=== PATIENT | female | born 2005 | race Caucasian/White ===

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

== ENCOUNTER 2023-04-07 14:44 | Emergency (ER) | payer OTHER ==
[2023-04-07 15:08] VITALS: RESP 18
--- NOTE | 2023-04-07 17:27 | ED ---
Psych HPI - General Chief Complaint: Psychiatric Symptoms Stated Complaint: mental health Time Seen by Provider: 04/07/23 15:02 Source: patient Mode of arrival: ambulatory - History of Present Illness Initial Comments: Patient is a 17-year-old female who presents to emergency department for suicidal ideation. Patient reports intermittent suicidal ideation after getting buried by some of her classmates. Patient has history of depression. Patient did come close to cutting herself yesterday but did not follow through with it. She denies plan and intention. Denies homicidal ideation. Denies visual and auditory hallucinations. Denies alcohol and drug use. Patient presents with her mother. She has no other concerns at this time. Denies fever, chills, headache, shortness of breath, cough, chest pain , abdominal pain, nausea, vomiting, diarrhea, and burning with urination. - Related Data Home Medications Medication Instructions Recorded Confirmed Etonogestrel [Nexplanon] 1 implant SQ CONTINUOUS 08/18/22 10/20/22 Lisdexamfetamine Dimesylate 50 mg PO QAM 08/18/22 10/20/22 [Vyvanse] Montelukast [Singulair] 10 mg PO DAILY 08/18/22 10/20/22 Venlafaxine HCl [Effexor XR] 225 mg PO QAM 08/18/22 10/20/22 Liraglutide [Saxenda] 2.8 mg SQ DAILY 10/20/22 10/20/22 Ondansetron [Zofran] 4 mg PO Q8HR PRN 10/20/22 10/20/22 Allergies Allergy/AdvReac Type Severity Reaction Status Date / Time Latex, Natural Rubber Allergy red & Verified 04/07/23 15:08 itchy skin Penicillins Allergy Rash/Hives Verified 04/07/23 15:08 Review of Systems ROS Statement: Those systems with pertinent positive or pertinent negative responses have been documented in the HPI. ROS Other: All systems not noted in ROS Statement are negative. Past Medical History Past Medical History: Thyroid Disorder Additional Past Medical History / Comment(s): polycystic ovaries, migraines. SEASONAL ALLERGIES, carpel tunnel History of Any Multi-Drug Resistant Organisms: None Reported Past Surgical History: No Surgical Hx Reported Additional Past Anesthesia/Blood Transfusion Reaction / Comment(s): NEVER HAD ANESTHESIA. Past Psychological History: ADD/ADHD, Anxiety, Depression Smoking Status: Never smoker - Past Family History Mother Family Medical History: No Reported History General Exam Limitations: no limitations General appearance: alert Head exam: Present: atraumatic, normocephalic, normal inspection Eye exam: Present: normal appearance, PERRL, EOMI. Absent: scleral icterus, conjunctival injection, periorbital swelling Respiratory exam: Present: normal lung sounds bilaterally. Absent: respiratory distress, wheezes, rales, rhonchi, stridor Cardiovascular Exam: Present: regular rate, normal rhythm, normal heart sounds. Absent: systolic murmur, diastolic murmur, rubs, gallop, clicks Extremities exam: Present: other (No abrasion or laceration) Neurological exam: Present: alert Psychiatric exam: Present: normal affect, suicidal ideation Skin exam: Present: warm, dry, intact, normal color. Absent: rash Course Vital Signs 04/07/23 04/07/23 15:01 17:29 Temperature 98.1 F 98.3 F Pulse Rate 85 79 Respiratory 18 18 Rate Blood Pressure 132/79 127/62 O2 Sat by Pulse 99 99 Oximetry Medical Decision Making - Medical Decision Making Was pt. sent in by a medical professional or institution (, PA, SYS DIR, urgent care, hospital, or fpc...) When possible be specific @ -No Did you speak to anyone other than the patient for history (EMS, parent, family, police, friend...)? What history was obtained from this source @ -No Did you review nursing and triage notes (agree or disagree)? Why? @ -I reviewed and agree with nursing and triage notes Were old charts reviewed (outside hosp., previous admission, EMS record, old EKG, old radiological studies, urgent care reports/EKG's, fpc records)? Report findings @ -No old charts were reviewed Differential Diagnosis (chest pain, altered mental status, abdominal pain women, abdominal pain men, vaginal bleeding, weakness, fever, dyspnea, syncope, headache, dizziness, GI bleed, back pain, seizure, CVA, palpatations, mental health)? @ -Differential Mental Health Depression, anxiety, bipolar, psychosis, schizophrenia, borderline personality, situational depression, adjustment disorder, behavioral disorder, brain tumor, malingering, substance abuse, encephalopathy, medication reaction, dementia, hypothyroidism, degenerative neurologic disorder, lupus.... This is not meant to be all-inclusive list EKG interpreted by me (3pts min.). @ -As above X-rays interpreted by me (1pt min.). @ -None done CT interpreted by me (1pt min.). @ -None done U/S interpreted by me (1pt. min.). @ -None done What testing was considered but not performed or refused? (CT, X-rays, U/S, labs)? Why? @ -None What meds were considered but not given or refused? Why? @ -None Did you discuss the management of the patient with other professionals (professionals i.e. , PA, SYS DIR, lab, RT, psych nurse, director of social work, crib attendant, teacher, energy control officer, rehabilitation caseworker)? Give summary @ -No Was smoking cessation discussed for >3mins.? @ -No Was critical care preformed (if so, how long)? @ -No Were there social determinants of health that impacted care today? How? (Homelessness, low income, unemployed, alcoholism, drug addiction, transportation, low edu. Level, literacy, decrease access to med. care, half-way, rehab)? @ -No Was there de-escalation of care discussed even if they declined (Discuss DNR or withdrawal of care, Hospice)? DNR status @ -No What co-morbidities impacted this encounter? (DM, HTN, Smoking, COPD, CAD, Cancer, CVA, ARF, Chemo, Hep., AIDS, mental health diagnosis, sleep apnea, morbid obesity)? @ -None Was patient admitted / discharged? Hospital course, mention meds given and rout e, prescriptions, significant lab abnormalities, going to OR and other pertinent info. @ -Patient bearing for suicidal ideation. Further evaluation with laboratory studies and imaging not indicated at this time. Alcohol breathalyzer is 0. Patient was evaluated by EPS and was deemed stable for discharge. Patient is prescribed psychiatric medication from her primary care provider. It was recommended patient follow with a psychiatrist and therapist. Mother is agreeable. Patient was given resources upon discharge Undiagnosed new problem with uncertain prognosis? @ -No Drug Therapy requiring intensive monitoring for toxicity (Heparin, Nitro, Insulin, Cardizem)? @ -No Were any procedures done? @ -No Diagnosis/symptom? @ Suicidal ideation Acute, or Chronic, or Acute on Chronic? @ -Acute Uncomplicated (without systemic symptoms) or Complicated (systemic symptoms)? @ Uncomplicated Side effects of treatment? @ -No Exacerbation, Progression, or Severe Exacerbation? @ -No Poses a threat to life or bodily function? How? (Chest pain, USA, IA, pneumonia, PE, COPD, DKA, ARF, appy, cholecystitis, CVA, Diverticulitis, Homicidal, Suicidal, threat to staff... and all critical care pts) @ -Not currently Dr. Chavez is my attending Disposition Clinical Impression: Suicidal ideation Disposition: HOME SELF-CARE Condition: Good Instructions (If sedation given, give patient instructions): Suicide Prevention (ED) Additional Instructions: Follow up with [facility] in one to 2 days. Return to the emergency department if you experience new, concerning, or worsening symptoms Is patient prescribed a controlled substance at d/c from ED?: No Referrals: Ian Ruiz MD [Primary Care Provider] - 1-2 days
[2023-04-07 17:46] VITALS: BP 127/62; PULSE 79; TEMP 98.3
== END 2023-04-07 17:49 | disposition home or self-care (01) ==
LOC: EC 14:44
DX: R45.851 Suicidal ideations (principal); F41.9 Anxiety disorder, unspecified; F32.A Depression, unspecified; F90.9 Attention-deficit hyperactivity disorder, unspecified type; Z79.899 Other long term (current) drug therapy; Z91.040 Latex allergy status; Z88.0 Allergy status to penicillin
CPT/HCPCS: 82075; 99284

== ENCOUNTER → 2023-08-02 | Outpatient (CLI) | payer OTHER ==
--- NOTE | 2023-08-03 09:00 | CT ---
EXAMINATION TYPE: CT brain wo con DATE OF EXAM: 08/02/2023 COMPARISON: None INDICATION: migraines x 6 months DLP: 1150.5 mGycm, Automated exposure control for dose reduction was used. CONTRAST: None CT of the brain is performed utilizing 3 mm thick sections through the posterior fossa and 3 mm thick sections through the remaining calvarium. Study is performed within 24 hours of arrival to the hosp ital. No abnormal hyperdensity is present to suggest an acute intracranial hemorrhage. No mass lesion is evident. No acute infarcts are evident. Ventricles and sulci are appropriate for the patient age. There are couple of small retention cysts within the frontal sinuses. Paranasal sinuses and mastoid a ir cells within the [id number] are otherwise clear. IMPRESSION: 1. No acute intracranial process. Follow-up MRI can be performed as clinically indicated.
== END | disposition home or self-care (01) ==
LOC: RADCTMAIN 16:18
PROVIDERS: ATTEND Family Medicine
DX: G43.909 Migraine, unspecified, not intractable, without status migrainosus (principal); R56.9 Unspecified convulsions
CPT/HCPCS: 70450

== ENCOUNTER 2023-09-14 21:11 | Emergency (ER) | payer OTHER ==
[2023-09-14 21:31] VITALS: BP 136/83; PULSE 94; RESP 16; TEMP 98.6
[2023-09-14] MEDS ORDERED: KETOROLAC 15 MG/ML 1 ML VIAL IVP STA (21:44)
[2023-09-14] MEDS ORDERED: ONDANSETRON 4 MG/2 ML VIAL IVP STA (21:44)
[2023-09-14] MEDS ORDERED: SODIUM CHLORIDE 0.9% 1,000 ML IV STA (21:44)
--- NOTE | 2023-09-14 22:03 | ED ---
Abdominal Pain HPI - General Chief Complaint: Abdominal Pain Stated Complaint: Abd Pain Time Seen by Provider: 09/14/23 21:33 Source: patient Mode of arrival: ambulatory Limitations: no limitations - History of Present Illness Initial Comments: 18-year-old female presenting with chief complaint of right upper quadrant pain. Patient states that this has been ongoing for the last month. States that today she started experiencing nausea and vomiting. Symptoms are worse after eating. No history of abdominal surgeries. Denies fever, chills, chest pain, difficulty breathing, URI-like symptoms. - Related Data Home Medications Medication Instructions Recorded Confirmed Etonogestrel [Nexplanon] 1 implant SQ CONTINUOUS 08/18/22 10/20/22 Lisdexamfetamine Dimesylate 50 mg PO QAM 08/18/22 10/20/22 [Vyvanse] Montelukast [Singulair] 10 mg PO DAILY 08/18/22 10/20/22 Venlafaxine HCl [Effexor XR] 225 mg PO QAM 08/18/22 10/20/22 Liraglutide [Saxenda] 2.8 mg SQ DAILY 10/20/22 10/20/22 Ondansetron [Zofran] 4 mg PO Q8HR PRN 10/20/22 10/20/22 Allergies Allergy/AdvReac Type Severity Reaction Status Date / Time Latex, Natural Rubber Allergy red & Verified 09/14/23 21:26 itchy skin Penicillins Allergy Rash/Hives Verified 09/14/23 21:26 Review of Systems ROS Statement: Those systems with pertinent positive or pertinent negative responses have been documented in the HPI. ROS Other: All systems not noted in ROS Statement are negative. Past Medical History Past Medical History: Thyroid Disorder Additional Past Medical History / Comment(s): polycystic ovaries, migraines. SEASONAL ALLERGIES, carpel tunnel History of Any Multi-Drug Resistant Organisms: None Reported Past Surgical History: No Surgical Hx Reported Additional Past Surgical History / Comment(s): Left wrist surgery Additional Past Anesthesia/Blood Transfusion Reaction / Comment(s): NEVER HAD ANESTHESIA. Past Psychological History: ADD/ADHD, Anxiety, Depression Smoking Status: Vaper Past Alcohol Use History: Occasional Past Drug Use History: Marijuana - Past Family History Mother Family Medical History: No Reported History General Exam Limitations: no limitations General appearance: alert, in no apparent distress Head exam: Present: atraumatic, normocephalic Eye exam: Present: normal appearance, EOMI Neck exam: Present: normal inspection Respiratory exam: Present: normal lung sounds bilaterally. Absent: respiratory distress, wheezes, rales, rhonchi, stridor Cardiovascular Exam: Present: regular rate, normal rhythm, normal heart sounds. Absent: systolic murmur, diastolic murmur, rubs, gallop, clicks GI/Abdominal exam: Present: soft. Absent: distended, tenderness, guarding, rebound, rigid Neurological exam: Present: alert, oriented X3 Psychiatric exam: Present: normal affect, normal mood Skin exam: Present: warm, dry Course Vital Signs 09/14/23 21:23 Temperature 98.6 F Pulse Rate 94 Respiratory 16 Rate Blood Pressure 136/83 O2 Sat by Pulse 98 Oximetry Medical Decision Making - Medical Decision Making Was pt. sent in by a medical professional or institution (, PA, MANAGER E LEARNING, urgent care, hospital, or fpc...) When possible be specific @ -No Did you speak to anyone other than the patient for history (EMS, parent, family, police, friend...)? What history was obtained from this source @ -No Did you review nursing and triage notes (agree or disagree)? Why? @ -I reviewed triage notes, I disagree as the patient indicates she is having right upper quadrant pain Were old charts reviewed (outside hosp., previous admission, EMS record, old EKG, old radiological studies, urgent care reports/EKG's, fpc records)? Report findings @ -No old charts were reviewed Differential Diagnosis (chest pain, altered mental status, abdominal pain women, abdominal pain men, vaginal bleeding, weakness, fever, dyspnea, syncope, headache, dizziness, GI bleed, back pain, seizure, CVA, palpatations, mental health, musculoskeletal)? @ -MDM Differential Abdominal Pain Women: Appendicitis, Cholecystitis, diverticulosis, ischemic bowel, pancreatitis, hepatitis, UTI, gastroenteritis, AAA, incarcerated hernia, bowel obstruction, constipation, inflammatory bowel, hepatitis, peptic ulcer disease, splenic infarction, perforated viscus, vulvitis, ovarian torsion, PID, kidney stone, placenta abruption... This is not meant to be an all-inclusive list EKG interpreted by me (3pts min.). @ -As above X-rays interpreted by me (1pt min.). @ -None done CT interpreted by me (1pt min.). @ -None done U/S interpreted by me (1pt. min.). @ -None done What testing was considered but not performed or refused? (CT, X-rays, U/S, labs)? Why? @ -CBC, CMP, amylase, lipase, urinalysis, urine hCG, abdominal ultrasound are ordered, patient eloped from the ER before obtaining these tests What meds were considered but not given or refused? Why? @ -None Did you discuss the management of the patient with other professionals (professionals i.e. , PA, MANAGER E LEARNING, lab, RT, psych nurse, social insurance administrator, data analyst report writer, teacher, chief merchandising officer, pillowcase cleaner)? Give summary @ -No Was smoking cessation discussed for >3mins.? @ -No Was critical care preformed (if so, how long)? @ -No Were there social determinants of health that impacted care today? How? (Homelessness, low income, unemployed, alcoholism, drug addiction, transportation, low edu. Level, literacy, decrease access to med. care, custodial, rehab)? @ -No Was there de-escalation of care discussed even if they declined (Discuss DNR or withdrawal of care, Hospice)? DNR status @ -No What co-morbidities impacted this encounter? (DM, HTN, Smoking, COPD, CAD, Cancer, CVA, ARF, Chemo, Hep., AIDS, mental health diagnosis, sleep apnea, morbid obesity)? @ -None Was patient admitted / discharged? Hospital course, mention meds given and route, prescriptions, significant lab abnormalities, going to OR and other pertinent info. @ -18-year-old female present with chief complaint of right upper quadrant pain nausea and vomiting. History and physical exam were conducted. Testing is ordered, when nurse Rios went to start IV the patient was not in the room. Patient eloped from the ER before receiving testing. Undiagnosed new problem with uncertain prognosis? @ -No Drug Therapy requiring intensive monitoring for toxicity (Heparin, Nitro, Insulin, Cardizem)? @ -No Were any procedures done? @ -No Diagnosis/symptom? @ -Abdominal pain Acute, or Chronic, or Acute on Chronic? @ -Acute Uncomplicated (without systemic symptoms) or Complicated (systemic symptoms)? @ -Not determined Side effects of treatment? @ -No Exacerbation, Progression, or Severe Exacerbation? @ -No Poses a threat to life or bodily function? How? (Chest pain, [place], [place], pneumonia, PE, COPD, DKA, ARF, appy, cholecystitis, CVA, Diverticulitis, Homicidal, Suicidal, threat to staff... and all critical care pts) @ -Unknown, patient eloped prior to complete evaluation Disposition Clinical Impression: Abdominal pain Narrative: eloped Disposition: LEFT AGAINST MEDICAL ADVICE Condition: Undetermined Referrals: Ian Ruiz MD [Primary Care Provider] - 1-2 days
== END 2023-09-14 22:00 | disposition left against medical advice (07) ==
LOC: EC 21:11
DX: R10.11 Right upper quadrant pain (principal); F41.9 Anxiety disorder, unspecified; F32.A Depression, unspecified; F90.9 Attention-deficit hyperactivity disorder, unspecified type; F17.290 Nicotine dependence, other tobacco product, uncomplicated; F12.90 Cannabis use, unspecified, uncomplicated; Z79.899 Other long term (current) drug therapy; Z88.0 Allergy status to penicillin; Z91.040 Latex allergy status; Z53.29 Procedure and treatment not carried out because of patient's decision for other reasons
CPT/HCPCS: 99283

== ENCOUNTER → 2023-09-14 | Outpatient (CLI) | payer OTHER ==
--- NOTE | 2023-09-14 13:21 | CT ---
EXAMINATION TYPE: CT abdomen pelvis wo/w con CT DLP: 3356 mGycm, Automated exposure control for dose reduction was used. DATE OF EXAM: 09/14/2023 1:17 PM COMPARISON: none CLINICAL INDICATION:Female, 18 years old with history of R10.9 UNSPECIFIED ABDOMINAL PAIN; RUQ pain a nd vomiting x2 months TECHNIQUE: Axial CT abdomen pelvis wo/w con;Sagittal and coronal reformats were created on a [employer] workstation. Contrast used:100 mL of Isovue 300 with IV Contrast, (none if empty) Oral contrast used: with Oral Contrast (none if empty) FINDINGS: LOWER CHEST: Unremarkable ABDOMEN LIVER: Diffusely hypoattenuating parenchyma. GALLBLADDER AND BILE DUCTS: Unremarkable. PANCREAS: Unremarkable. SPLEEN: Unremarkable. ADRENAL GLANDS: Unremarkable. KIDNEYS AND URETERS: No evidence of hydronephrosis or renal calculus. The ureters are unremarkable. PELVIS BLADDER: Unremarkable REPRODUCTIVE: Unremarkable. ABDOMEN & PELVIS STOMACH AND BOWEL: No evidence of bowel obstruction. PERITONEUM/RETROPERITONEUM: No evidence of pneumoperitoneum or free fluid. VASCULATURE: No evidence of aortic aneurysm. MUSCULOSKELETAL: No acute osseous abnormalities LYMPH NODES: No gross evidence for lymphadenopathy. SOFT TISSUE/ABDOMINAL WALL: Unremarkable IMPRESSION: 1. No evidence for acute abdominal process. No obstructive uropathy. The gallbladder is within chilango l limits. No evidence for pancreatitis. 2. Hepatic steatosis.
== END | disposition home or self-care (01) ==
LOC: RADCTMAIN 10:58
PROVIDERS: ATTEND Family Medicine
DX: K76.0 Fatty (change of) liver, not elsewhere classified (principal)
CPT/HCPCS: 74178; Q9967

== ENCOUNTER 2023-09-24 04:18 | Emergency (ER) | payer OTHER ==
[2023-09-24 04:30] VITALS: TEMP 98.6
[2023-09-24 05:28] LABS: Basophils # (A) 0.1 k/uL (0-0.2); Basophils % (A) 1 %; Eosinophils # (A) 0.3 k/uL (0-0.7); Eosinophils % (A) 5 %; HCT 39.4 % (34.0-46.0); HGB 13.4 gm/dL (11.4-16.0); Lymphocytes # (A) 1.1 k/uL (1.0-4.8); Lymphocytes % (A) 19 %; MCH 30.9 pg (25.0-35.0); MCHC 34.1 g/dL (31.0-37.0); MCV 90.8 fL (80.0-100.0); Monocytes # (A) 0.6 k/uL (0-1.0); Monocytes % (A) 10 %; Neutrophils # (A) 3.5 k/uL (1.3-7.7); Neutrophils % (A) 62 %; Platelet Count 263 k/uL (150-450); RBC 4.34 m/uL (3.80-5.40); RDW 12.6 % (11.5-15.5); WBC 5.6 k/uL (4.0-11.0)
--- NOTE | 2023-09-24 05:29 | ED ---
General Adult HPI - General Source: patient Mode of arrival: ambulatory Limitations: no limitations <Logan Albrecht - Last Filed: 09/24/23 06:59> <Hernandez Chavez - Last Filed: 09/24/23 08:52> - General Chief complaint: Abdominal Pain Stated complaint: abd pain Time Seen by Provider: 09/24/23 05:00 - History of Present Illness Initial comments: Dictation was produced using Myrl dictation software. please excuse any grammatical, word or spelling errors. Chief Complaint: 18-year-old female presents with bloody emesis History of Present Illness: Patient is a 18-year-old obese female presents to the emergency department with blood in her vomit. She presents with family member. Patient has been worked up by her primary care doctor for this for the last month. She states tested for H. pylori. She apparently was supposed to have an upper endoscopy however she missed her appointment. Patient states that intermittently since for the last months she would have bouts of emesis. She states that sometimes her emesis is streaked with blood. She does have some mild epigastric pain that is exacerbated with food. Denies any black or bloody stools. Patient has known fatty liver disease seen on CT. She does complain of some mild right upper quadrant pain The ROS documented in this emergency department record has been reviewed and confirmed by me. Those systems with pertinent positive or negative responses have been documented in the HPI. All other systems are other negative and/or noncontributory. (Logan Albrecht) - Related Data Home Medications Medication Instructions Recorded Confirmed Etonogestrel [Nexplanon] 1 implant SQ CONTINUOUS 08/18/22 10/20/22 Lisdexamfetamine Dimesylate 50 mg PO QAM 08/18/22 10/20/22 [Vyvanse] Montelukast [Singulair] 10 mg PO DAILY 08/18/22 10/20/22 Venlafaxine HCl [Effexor XR] 225 mg PO QAM 08/18/22 10/20/22 Liraglutide [Saxenda] 2.8 mg SQ DAILY 10/20/22 10/20/22 Ondansetron [Zofran] 4 mg PO Q8HR PRN 10/20/22 10/20/22 Previous Rx's Medication Instructions Recorded Ondansetron Odt [Zofran Odt] 4 mg PO Q8HR PRN 3 Days #9 tab 09/24/23 Allergies Allergy/AdvReac Type Severity Reaction Status Date / Time Latex, Natural Rubber Allergy red & Verified 09/24/23 04:27 itchy skin Penicillins Allergy Rash/Hives Verified 09/24/23 04:27 Review of Systems ROS Other: All systems not noted in ROS Statement are negative. <Logan Albrecht - Last Filed: 09/24/23 06:59> ROS Other: All systems not noted in ROS Statement are negative. <Hernandez Chavez - Last Filed: 09/24/23 08:52> ROS Statement: Those systems with pertinent positive or pertinent negative responses have been documented in the HPI. Past Medical History Past Medical History: Thyroid Disorder Additional Past Medical History / Comment(s): polycystic ovaries, migraines. SEASONAL ALLERGIES, carpel tunnel History of Any Multi-Drug Resistant Organisms: None Reported Past Surgical History: No Surgical Hx Reported Additional Past Surgical History / Comment(s): Left wrist surgery Additional Past Anesthesia/Blood Transfusion Reaction / Comment(s): NEVER HAD ANESTHESIA. Past Psychological History: ADD/ADHD, Anxiety, Depression Smoking Status: Vaper Past Alcohol Use History: Occasional Past Drug Use History: Marijuana - Past Family History Mother Family Medical History: No Reported History <Logan Albrecht - Last Filed: 09/24/23 06:59> General Exam Limitations: no limitations <Logan Albrecht - Last Filed: 09/24/23 06:59> - General Exam Comments Initial Comments: PHYSICAL EXAM: General Impression: Alert and oriented x3, not in acute distress HEENT: Normocephalic atraumatic, extra-ocular movements intact, pupils equal and reactive to light bilaterally, mucous membranes moist. Cardiovascular: Heart regular rate and rhythm Chest: Able to complete full sentences, no retractions, no tachypnea Abdomen: abdomen soft, non-tender, non-distended, no organomegaly Musculoskeletal: Pulses present and equal in all extremities, no peripheral vance a Motor: no focal deficits noted Neurological: CN II-XII grossly intact, no focal motor or sensory deficits noted Skin: Intact with no visualized rashes Psych: Normal affect and mood (Logan Albrecht) Course Vital Signs 09/24/23 09/24/23 04:24 08:01 Temperature 98.6 F Pulse Rate 90 94 Respiratory 18 16 Rate Blood Pressure 118/71 109/88 O2 Sat by Pulse 100 99 Oximetry Medical Decision Making - Lab Data Result diagrams: 09/24/23 05:18 <Logan Albrecht - Last Filed: 09/24/23 06:59> - Lab Data Result diagrams: 09/24/23 05:18 09/24/23 05:18 <Hernandez Chavez - Last Filed: 09/24/23 08:52> - Medical Decision Making Was pt. sent in by a medical professional or institution (, PA, BUGGY MAN, urgent care, hospital, or fci...) When possible be specific @ -No Did you speak to anyone other than the patient for history (EMS, parent, family, police, friend...)? What history was obtained from this source @ -No Did you review nursing and triage notes (agree or disagree)? Why? @ -I reviewed and agree with nursing and triage notes Were old charts reviewed (outside hosp., previous admission, EMS record, old EKG, old radiological studies, urgent care reports/EKG's, fci records)? Report findings @ -Recent CT abdomen pelvis was reviewed showing hepatic steatosis with no other acute processes Differential Diagnosis (chest pain, altered mental status, abdominal pain women, abdominal pain men, vaginal bleeding, musculoskeletal, weakness, fever, dyspnea, syncope, headache, dizziness, GI bleed, back pain, seizure, CVA, palpatations, mental health)? @ -Differential Abdominal Pain Women: Appendicitis, Cholecystitis, diverticulosis, ischemic bowel, pancreatitis, hepatitis, UTI, gastroenteritis, AAA, incarcerated hernia, bowel obstruction, constipation, inflammatory bowel, hepatitis, peptic ulcer disease, splenic infarction, perforated viscus, vulvitis, ovarian torsion, PID, kidney stone, pl acenta abruption, this is not meant to be an all-inclusive list EKG interpreted by me (3pts min.). @ -None done X-rays interpreted by me (1pt min.). @ -None done CT interpreted by me (1pt min.). @ -None done U/S interpreted by me (1pt. min.). @ -None What testing was considered but not performed or refused? (CT, X-rays, U/S, labs)? Why? @ -None What meds were considered but not given or refused? Why? @ -None Did you discuss the management of the patient with other professionals (professionals i.e. , PA, BUGGY MAN, lab, RT, psych nurse, social work case manager, studio artist, teacher, evp and chief operating officer, returned case inspector)? Give summary @ -No Was smoking cessation discussed for >3mins.? @ -No Was critical care preformed (if so, how long)? @ -No Were there social determinants of health that impacted care today? How? (Homelessness, low income, unemployed, alcoholism, drug addiction, transportation, low edu. Level, literacy, decrease access to med. care, fci, rehab)? @ -No Was there de-escalation of care discussed even if they declined (Discuss DNR or withdrawal of care, Hospice)? DNR status @ -No What co-morbidities impacted this encounter? (DM, HTN, Smoking, COPD, CAD, Cancer, CVA, ARF, Chemo, Hep., AIDS, mental health diagnosis, sleep apnea, morbid obesity)? @ -None Was patient admitted / discharged? Hospital course, mention meds given and route, prescriptions, significant lab abnormalities, going to OR and other pertinent info. @ -18-year-old female presents emergency department with acute on chronic abdominal pain nausea vomiting and h blood-streaked hematemesis. Vital signs stable. Patient undergoing workup by primary care physician. S patient well- appearing at bedside. Clinical presentation suggest Vanda-Funez tear from chronic vomiting. Laboratory evaluation shows normal CBC. Normal urinalysis negative for . Patient pending ultrasound. Patient care signed out to Dr. Chavez at 7:00 AM Undiagnosed new problem with uncertain prognosis? @ -No Drug Therapy requiring intensive monitoring for toxicity (Heparin, Nitro, Insulin, Cardizem)? @ -No Were any procedures done? @ -No Diagnosis/symptom? Acute, or Chronic, or Acute on Chronic? Uncomplicated (without systemic symptoms) or Complicated (systemic symptoms)? @ -Vanda-Funez tear Side effects of treatment? @ -No Exacerbation, Progression, or Severe Exacerbation? @ -No Poses a threat to life or bodily function? How? (Chest pain, [place], [place], pneumonia, PE, COPD, DKA, ARF, appy, cholecystitis, CVA, Diverticulitis, Homicidal, Suicidal, threat to staff... and all critical care pts) @ -No (Logan Albrecht) Patient signed out to me pending results of gallbladder ultrasound. Briefly, patient presents for possible blood in her vomit as well as emesis and mild e pigastric abdominal pain. Was supposed to follow-up for an EGD but missed her appointment. Also some mild right upper quadrant pain. Patient was symptomatically treated and laboratory studies so far have returned within acceptable limits. She is on blood thinners. She is asking to eat and drink when I arrived. Ultrasound of the gallbladder as interpreted by me reveals known fatty liver disease but no other findings at this time. No evidence of cholecystitis. I discussed results with the patient. Symptoms have resolved. I recommended she follow-up with GI for obtaining EGD. This is likely an exacerbation of her chronic symptoms. She was in agreement this plan. She has Zofran at home already but I will send additional Zofran and she is already on antiacids. She will be given contact info for Dr. Witt. She was in agreement this plan.Discussed the streaky blood might be related to Vanda-Funez tear with her chronic emesis. I will provide the patient with a prescription for Zofran. I instructed the patient to follow up with their PCP in the next 1-3 days. I provided contact information for follow up with gastroenterology. I explained that the patient should return to the emergency department if they experience any worsening symptoms. Strict return precautions were discussed with the patient. The patient expressed understanding of these instructions. I answered all questions that the patient had. The patient was discharged home in good condition with their presc riptions and follow up information. Diagnosis/symptom? @ -Abdominal pain of unknown etiology Acute, or Chronic, or Acute on Chronic? @ -Acute Uncomplicated (without systemic symptoms) or Complicated (systemic symptoms)? @ -Complicated Side effects of treatment? @ -None Exacerbation, Progression, or Severe Exacerbation] @ -No Poses a threat to life or bodily function? @ -Unlikely (Hernandez Chavez) - Lab Data Lab Results 09/24/23 09/24/23 09/24/23 Range/Units 05:18 05:18 05:35 WBC 5.6 (4.0-11.0) k/uL RBC 4.34 (3.80-5.40) m/uL Hgb 13.4 (11.4-16.0) gm/dL Hct 39.4 (34.0-46.0) % MCV 90.8 (80.0-100.0) fL MCH 30.9 (25.0-35.0) pg MCHC 34.1 (31.0-37.0) g/dL RDW 12.6 (11.5-15.5) % Plt Count 263 (150-450) k/uL MPV 8.0 Neutrophils % 62 % Lymphocytes % 19 % Monocytes % 10 % Eosinophils % 5 % Basophils % 1 % Neutrophils # 3.5 (1.3-7.7) k/uL Lymphocytes # 1.1 (1.0-4.8) k/uL Monocytes # 0.6 (0-1.0) k/uL Eosinophils # 0.3 (0-0.7) k/uL Basophils # 0.1 (0-0.2) k/uL Sodium 138 (137-145) mmol/L Potassium 3.9 (3.5-5.1) mmol/L Chloride 107 (98-107) mmol/L Carbon Dioxide 24 (22-30) mmol/L Anion Gap 7 mmol/L BUN 11 (7-17) mg/dL Creatinine 0.76 (0.52-1.04) mg/dL Est GFR (CKD-EPI)AfAm >90 (>60 ml/min/1.73 sqM) Est GFR (CKD-EPI)NonAf >90 (>60 ml/min/1.73 sqM) Glucose 87 (74-99) mg/dL Calcium 9.1 (8.4-10.2) mg/dL Total Bilirubin 0.6 (0.2-1.3) mg/dL AST 33 (14-36) U/L ALT 31 (4-34) U/L Alkaline Phosphatase 63 (38-126) U/L Total Protein 6.2 L (6.3-8.2) g/dL Albumin 3.7 (3.5-5.0) g/dL Lipase 60 (23-300) U/L Urine Color Yellow Urine Appearance Clear (Clear) Urine pH 6.0 (5.0-8.0) Ur Specific Cameron 1.019 (1.001-1.035) Urine Protein Negative (Negative) Urine Glucose (UA) Negative (Negative) Urine Ketones Negative (Negative) Urine Blood Negative (Negative) Urine Nitrite Negative (Negative) Urine Bilirubin Negative (Negative) Urine Urobilinogen <2.0 (<2.0) mg/dL Ur Leukocyte Esterase Negative (Negative) Urine HCG, Qual (Not Detectd) 09/24/23 Range/Units 05:35 WBC (4.0-11.0) k/uL RBC (3.80-5.40) m/uL Hgb (11.4-16.0) gm/dL Hct (34.0-46.0) % MCV (80.0-100.0) fL MCH (25.0-35.0) pg MCHC (31.0-37.0) g/dL RDW (11.5-15.5) % Plt Count (150-450) k/uL MPV Neutrophils % % Lymphocytes % % Monocytes % % Eosinophils % % Basophils % % Neutrophils # (1.3-7.7) k/uL Lymphocytes # (1.0-4.8) k/uL Monocytes # (0-1.0) k/uL Eosinophils # (0-0.7) k/uL Basophils # (0-0.2) k/uL Sodium (137-145) mmol/L Potassium (3.5-5.1) mmol/L Chloride (98-107) mmol/L Carbon Dioxide (22-30) mmol/L Anion Gap mmol/L BUN (7-17) mg/dL Creatinine (0.52-1.04) mg/dL Est GFR (CKD-EPI)AfAm (>60 ml/min/1.73 sqM) Est GFR (CKD-EPI)NonAf (>60 ml/min/1.73 sqM) Glucose (74-99) mg/dL Calcium (8.4-10.2) mg/dL Total Bilirubin (0.2-1.3) mg/dL AST (14-36) U/L ALT (4-34) U/L Alkaline Phosphatase (38-126) U/L Total Protein (6.3-8.2) g/dL Albumin (3.5-5.0) g/dL Lipase (23-300) U/L Urine Color Urine Appearance (Clear) Urine pH (5.0-8.0) Ur Specific Cameron (1.001-1.035) Urine Protein (Negative) Urine Glucose (UA) (Negative) Urine Ketones (Negative) Urine Blood (Negative) Urine Nitrite (Negative) Urine Bilirubin (Negative) Urine Urobilinogen (<2.0) mg/dL Ur Leukocyte Esterase (Negative) Urine HCG, Qual Not Detected (Not Detectd) Disposition <Logan Albrecht - Last Filed: 09/24/23 06:59> Is patient prescribed a controlled substance at d/c from ED?: No Time of Disposition: 07:51 <Hernandez Chavez - Last Filed: 09/24/23 08:52> Clinical Impression: Abdominal pain of unknown etiology, Vanda-Funez tear Disposition: HOME SELF-CARE Condition: Stable Instructions (If sedation given, give patient instructions): Abdominal Pain (ED) Prescriptions: Ondansetron Odt [Zofran Odt] 4 mg PO Q8HR PRN 3 Days #9 tab PRN Reason: Nausea Referrals: Ian Ruiz MD [Primary Care Provider] - 1-2 days Radha Witt MD [STAFF PHYSICIAN] - 1-2 days
[2023-09-24 05:44] LABS: Appearance,Urine Clear (Clear); Bilirubin,Urine Negative (Negative); Blood,Urine Negative (Negative); Color,Urine Yellow; Glucose,Urine (UA) Negative (Negative); Ketones,Urine Negative (Negative); Leukocyte Esterase,Urine Negative (Negative); Nitrite,Urine Negative (Negative); Protein,Urine Negative (Negative); Specific Gravity,Urine 1.019 (1.001-1.035); Urobilinogen,Urine <2.0 mg/dL (<2.0)
[2023-09-24 07:08] LABS: ALT 31 U/L (4-34); AST 33 U/L (14-36); African American GFR (CKD) >90 (>60 ml/min/1.73 sqM); Albumin 3.7 g/dL (3.5-5.0); Alkaline Phosphatase 63 U/L (38-126); Anion Gap 7 mmol/L; Blood Urea Nitrogen 11 mg/dL (7-17); Calcium 9.1 mg/dL (8.4-10.2); Carbon Dioxide 24 mmol/L (22-30); Chloride 107 mmol/L (98-107); Glucose 87 mg/dL (74-99); Lipase 60 U/L (23-300); Non-African American GFR(CKD) >90 (>60 ml/min/1.73 sqM); Potassium 3.9 mmol/L (3.5-5.1); Sodium 138 mmol/L (137-145); Total Bilirubin 0.6 mg/dL (0.2-1.3); Total Protein 6.2 g/dL (6.3-8.2)
--- NOTE | 2023-09-24 07:47 | US ---
EXAMINATION TYPE: US abdomen limited DATE OF EXAM: 09/24/2023 COMPARISON: NONE CLINICAL INDICATION: Female, 18 years old with history of RUQ pain; RUQ pain x 1 month, n/v blood TECHNIQUE: Multiple sonographic images of the right upper quadrant are obtained. FINDINGS: EXAM MEASUREMENTS: Liver Length: 20.5 cm Gallbladder Wall: 0.2 cm CBD: 0.3 cm Right Kidney: 9.3x4.6x5.0 cm Replenishment Merchandising Associate notes: Exam limited by bowel gas and body habitus Pancreas: Most of the pancreas is obscured by bowel gas and large body habitus. Liver: increased size, attenuating, slightly echogenic, and heterogeneous. Gallbladder: wnl Evidence for sonographic Nicole's sign: No CBD: wnl Right Kidney: No hydronephrosis or masses seen IMPRESSION: 1. Hepatomegaly at 20.5 cm. Increased heterogeneous echotexture could reflect hepatic steatosis or ot her nonspecific hepatocellular disease. Further clinical correlation recommended. 2. No gallstones or biliary ductal dilatation.
[2023-09-24] MEDS ORDERED: ONDANSETRON 4 MG ODT STARTER PACK 2 TAB BTL PO STA (07:53)
[2023-09-24 08:36] VITALS: BP 109/88; PULSE 94; RESP 16
== END 2023-09-24 08:04 | disposition home or self-care (01) ==
LOC: EC 04:18
DX: K22.6 Gastro-esophageal laceration-hemorrhage syndrome (principal); F41.9 Anxiety disorder, unspecified; F32.A Depression, unspecified; F90.9 Attention-deficit hyperactivity disorder, unspecified type; F17.290 Nicotine dependence, other tobacco product, uncomplicated; F12.90 Cannabis use, unspecified, uncomplicated; Z79.899 Other long term (current) drug therapy; Z88.0 Allergy status to penicillin; Z91.040 Latex allergy status
CPT/HCPCS: 36415; 76705; 80053; 81003; 81025; 83690; 85025; 99284

== ENCOUNTER → 2023-10-19 | Outpatient (CLI) | payer OTHER ==
--- NOTE | 2023-10-19 09:41 | NM ---
EXAMINATION TYPE: NM hepatobiliary wo EF DATE OF EXAM: 10/19/2023 8:28 AM COMPARISON: CT abdomen pelvis most recent from 10/13/2023 CLINICAL INDICATION:Female, 18 years old with history of R10.84 GENERALIZED ABDOMINAL PAIN; TECHNIQUE: The patient was given 4.5 mCi of Technetium 99m-Mebrofenin as a radiotracer and multiple scintigraphic images were obtained of the abdomen. Gallbladder function was also assessed after the a dministration of ensure drink and additional scintigraphic images were obtained of the abdomen. A reg ion of interest was drawn over the gallbladder and a timing activity curve was generated. The gallbla dder ejection fraction was calculated. FINDINGS: Normal uptake of radiotracer was identified within the liver with excretion into the hepatic and comm on biliary ducts within the minutes. There was normal progressive washout of the liver over the cours e of the study. Radiotracer uptake within the gallbladder at 8 minutes as well as small bowel activit y was identified at 18 minutes. IMPRESSION: 1. Normal hepatobiliary scan. 2. Patient refused additional imaging after 30 minutes.
== END | disposition home or self-care (01) ==
LOC: RADNMMAIN 07:06
PROVIDERS: ATTEND Family Medicine
DX: R10.84 Generalized abdominal pain (principal); R11.2 Nausea with vomiting, unspecified; K82.8 Other specified diseases of gallbladder
CPT/HCPCS: 78226; A9537

== ENCOUNTER 2023-11-26 20:45 | Inpatient (IN) | payer MEDICAID, OTHER ==
[2023-11-26 21:32] LABS: Basophils # (A) 0.1 k/uL (0-0.2); Basophils % (A) 1 %; Eosinophils # (A) 0.2 k/uL (0-0.7); Eosinophils % (A) 2 %; HCT 46.7 % (34.0-46.0); HGB 15.3 gm/dL (11.4-16.0); Lymphocytes # (A) 2.4 k/uL (1.0-4.8); Lymphocytes % (A) 25 %; MCH 30.5 pg (25.0-35.0); MCHC 32.7 g/dL (31.0-37.0); MCV 93.4 fL (80.0-100.0); Monocytes # (A) 0.4 k/uL (0-1.0); Monocytes % (A) 4 %; Neutrophils # (A) 6.2 k/uL (1.3-7.7); Neutrophils % (A) 66 %; Platelet Count 294 k/uL (150-450); RDW 12.4 % (11.5-15.5); WBC 9.4 k/uL (4.0-11.0)
[2023-11-26 21:48] LABS: ALT 40 U/L (4-34); AST 27 U/L (14-36); Acetaminophen <10.0 ug/mL; African American GFR (CKD) >90 (>60 ml/min/1.73 sqM); Albumin 4.7 g/dL (3.5-5.0); Alcohol <10 mg/dL; Alkaline Phosphatase 64 U/L (38-126); Anion Gap 10 mmol/L; Blood Urea Nitrogen 12 mg/dL (7-17); Calcium 9.8 mg/dL (8.4-10.2); Carbon Dioxide 22 mmol/L (22-30); Chloride 107 mmol/L (98-107); Glucose 88 mg/dL (74-99); Lipase 56 U/L (23-300); Non-African American GFR(CKD) >90 (>60 ml/min/1.73 sqM); Potassium 4.1 mmol/L (3.5-5.1); Salicylate <1.0 mg/dL; Sodium 139 mmol/L (137-145); Total Protein 7.6 g/dL (6.3-8.2)
--- NOTE | 2023-11-26 21:49 | ED ---
Overdose HPI - General Source: patient, EMS, RN notes reviewed, old records reviewed, Caregiver Mode of arrival: EMS Limitations: no limitations - History of Present Illness MD Complaint: intentional overdose -: hour(s) How Overdose Was Discovered: called family/friend, family/friend present at time Associated Symptoms: depression Treatments Prior to Arrival: none <Serafin Gatica - Last Filed: 11/26/23 23:26> <George Givens - Last Filed: 11/27/23 13:53> - General Chief Complaint: Overdose Stated Complaint: suicide attempt Time Seen by Provider: 11/26/23 20:53 - History of Present Illness Initial Comments: This is a 18-year-old female who presents for psychiatric evaluation. Patient presents emergency suspicion of acute overdose as a suicide attempt. Patient presents with mother at bedside is very emotional having difficulty with history of present illness (Serafin Gatica) - Related Data Home Medications Medication Instructions Recorded Confirmed Montelukast [Singulair] 10 mg PO DAILY 08/18/22 11/27/23 Venlafaxine HCl [Effexor XR] 150 mg PO DAILY 08/18/22 11/27/23 Cariprazine HCl [Vraylar] 3 mg PO DAILY 11/27/23 11/27/23 Cholecalciferol (Vitamin D3) 50 mcg PO DAILY 11/27/23 11/27/23 [Vitamin D3 (50 Mcg = 2000 Iu)] Fluticasone Nasal [place] [Flonase 1 - 2 spray EA NOSTRIL BID PRN 11/27/23 11/27/23 Nasal [place]] Lisdexamfetamine Dimesylate 60 mg PO DAILY 11/27/23 11/27/23 [Vyvanse] Ondansetron Odt [Zofran Odt] 8 mg PO Q8HR PRN 11/27/23 11/27/23 Pantoprazole [Protonix] 40 mg PO DAILY 11/27/23 11/27/23 Venlafaxine HCl [Effexor XR] 75 mg PO DAILY 11/27/23 11/27/23 Allergies Allergy/AdvReac Type Severity Reaction Status Date / Time Latex, Natural Rubber Allergy red & Verified 11/27/23 11:10 itchy skin, rash Penicillins Allergy Rash/Hives Verified 11/27/23 11:10 Review of Systems ROS Other: All systems not noted in ROS Statement are negative. <Serafin Gatica - Last Filed: 11/26/23 23:26> ROS Other: All systems not noted in ROS Statement are negative. <George Givens - Last Filed: 11/27/23 13:53> ROS Statement: Those systems with pertinent positive or pertinent negative responses have been documented in the HPI. Past Medical History Past Medical History: Thyroid Disorder Additional Past Medical History / Comment(s): polycystic ovaries, migraines. SEASONAL ALLERGIES, carpel tunnel History of Any Multi-Drug Resistant Organisms: None Reported Past Surgical History: No Surgical Hx Reported Additional Past Surgical History / Comment(s): Left wrist surgery Additional Past Anesthesia/Blood Transfusion Reaction / Comment(s): NEVER HAD ANESTHESIA. Past Psychological History: ADD/ADHD, Anxiety, Depression Smoking Status: Vaper Past Alcohol Use History: Occasional Past Drug Use History: Marijuana - Past Family History Mother Family Medical History: No Reported History <Serafin Gatica - Last Filed: 11/26/23 23:26> General Exam General appearance: alert, in no apparent distress Head exam: Present: atraumatic, normocephalic, normal inspection Eye exam: Present: normal appearance, PERRL, EOMI. Absent: scleral icterus, conjunctival injection, periorbital swelling ENT exam: Present: normal exam, mucous membranes moist Neck exam: Present: normal inspection. Absent: tenderness, meningismus, lymphadenopathy Respiratory exam: Present: normal lung sounds bilaterally. Absent: respiratory distress, wheezes, rales, rhonchi, stridor Cardiovascular Exam: Present: regular rate, normal rhythm, normal heart sounds. Absent: systolic murmur, diastolic murmur, rubs, gallop, clicks GI/Abdominal exam: Present: soft, normal bowel sounds. Absent: distended, tenderness, guarding, rebound, rigid Extremities exam: Present: normal inspection, full ROM, normal capillary refill. Absent: tenderness, pedal edema, joint swelling, calf tenderness Back exam: Present: normal inspection Neurological exam: Present: alert, oriented X3, CN II-XII intact Psychiatric exam: Present: normal affect, normal mood Skin exam: Present: warm, dry, intact, normal color. Absent: rash <Serafin Gatica - Last Filed: 11/26/23 23:26> Course <Serafin Gatica - Last Filed: 11/26/23 23:26> Vital Signs 11/26/23 11/26/23 11/27/23 20:52 22:55 00:12 Temperature 98.5 F 98.2 F Pulse Rate 78 108 H 98 Respiratory 18 19 16 Rate Blood Pressure 136/72 135/90 159/90 O2 Sat by Pulse 98 99 98 Oximetry 11/27/23 11/27/23 11/27/23 03:05 04:05 05:29 Temperature 97.7 F Pulse Rate 71 100 107 H Respiratory 15 16 16 Rate Blood Pressure 158/90 142/86 O2 Sat by Pulse 100 100 100 Oximetry - Reevaluation(s) Reevaluation #1: 11/26/23 23:27 Medical records reviewed (Serafin Gatica) Reevaluation #2: 11/26/23 23:27 Medically cleared for psychiatric evaluation (Serafin Gatica) Medical Decision Making - Lab Data Result diagrams: 11/26/23 21:26 11/26/23 21:26 - EKG Data -: EKG Interpreted by Me (EKG is sinus 78 IL 172 QRS 106 QTc 381) <Serafin Gatica - Last Filed: 11/26/23 23:26> - Lab Data Result diagrams: 11/26/23 21:26 11/26/23 21:26 <George Givens - Last Filed: 11/27/23 13:53> - Medical Decision Making Was pt. sent in by a medical professional or institution (, PA, PHLEBOTOMIST, urgent care, hospital, or [place] [facility] [place] facility...) When possible be specific @ -No Did you speak to anyone other than the patient for history (EMS, parent, family, police, friend...)? What history was obtained from this source @Patient's mother Did you review nursing and triage notes (agree or disagree)? Why? @ -I reviewed and agree with nursing and triage notes Were old charts reviewed (outside hosp., previous admission, EMS record, old EKG, old radiological studies, urgent care reports/EKG's, [place] health [place] records)? Report findings @ -No old charts were reviewed Differential Mental Health Depression, anxiety, bipolar, psychosis, schizophrenia, borderline personality, situational depression, adjustment disorder, behavioral disorder, brain tumor, malingering, substance abuse, encephalopathy, medication reaction, dementia, hypothyroidism, degenerative neurologic disorder, lupus.... This is not meant to be all-inclusive list EKG interpreted by me (3pts min.). @ -As above X-rays interpreted by me (1pt min.). @ -None done CT interpreted by me (1pt min.). @ -None done U/S interpreted by me (1pt. min.). @ -None done What testing was considered but not performed or refused? (CT, X-rays, U/S, labs)? Why? @ -None What meds were considered but not given or refused? Why? @ -None Did you discuss the management of the patient with other professionals (professionals i.e. , PA, PHLEBOTOMIST, lab, RT, psych nurse, clinical social work aide, tourism radio presenter, teacher, medical information officer, case packer and sealer)? Give summary @ -No Was smoking cessation discussed for >3mins.? @ -No Was critical care preformed (if so, how long)? @Yes, 35 minutes for overdose on prescribed medication Were there social determinants of health that impacted care today? How? (Homelessness, low income, unemployed, alcoholism, drug addiction, transporta tion, low edu. Level, literacy, decrease access to med. care, prison, rehab)? @ -EPS, requesting admission Was there de-escalation of care discussed even if they declined (Discuss DNR or withdrawal of care, Hospice)? DNR status @ -No What co-morbidities impacted this encounter? (DM, HTN, Smoking, COPD, CAD, Cancer, CVA, ARF, Chemo, Hep., AIDS, mental health diagnosis, sleep apnea, morbid obesity)? @ -Anxiety and depression Was patient admitted / discharged? Hospital course, mention meds given and route, prescriptions, significant lab abnormalities, going to OR and other pertinent info. @ -18-year-old female who was medically cleared by previous physician and was awaiting EPS evaluation. Patient has been petitioned and is requiring inpatient psychiatric care. I did evaluate the patient and completed a clinical certification. She had attempted suicide with increased depression. Patient will be admitted. Undiagnosed new problem with uncertain prognosis? @ -No Drug Therapy requiring intensive monitoring for toxicity (Heparin, Nitro, Insulin, Cardizem)? @ -No Were any procedures done? @ -No Diagnosis/symptom? @ -Depression, overdose, suicide attempt Acute, or Chronic, or Acute on Chronic? @Acute Uncomplicated (without systemic symptoms) or Complicated (systemic symptoms)? @ -Default Side effects of treatment? @ -No Exacerbation, Progression, or Severe Exacerbation? @ -No Poses a threat to life or bodily function? How? (Chest pain, [place], [place], pneumonia, PE, COPD, DKA, ARF, appy, cholecystitis, CVA, Diverticulitis, Homicidal, Suicidal, threat to staff... and all critical care pts) @ -Yes, suicidal (George Givens) - Lab Data Lab Results 11/26/23 11/26/23 11/26/23 Range/Units 21:26 21:26 22:37 WBC 9.4 (4.0-11.0) k/uL RBC 5.00 (3.80-5.40) m/uL Hgb 15.3 (11.4-16.0) gm/dL Hct 46.7 H (34.0-46.0) % MCV 93.4 (80.0-100.0) fL MCH 30.5 (25.0-35.0) pg MCHC 32.7 (31.0-37.0) g/dL RDW 12.4 (11.5-15.5) % Plt Count 294 (150-450) k/uL MPV 8.0 Neutrophils % 66 % Lymphocytes % 25 % Monocytes % 4 % Eosinophils % 2 % Basophils % 1 % Neutrophils # 6.2 (1.3-7.7) k/uL Lymphocytes # 2.4 (1.0-4.8) k/uL Monocytes # 0.4 (0-1.0) k/uL Eosinophils # 0.2 (0-0.7) k/uL Basophils # 0.1 (0-0.2) k/uL Sodium 139 (137-145) mmol/L Potassium 4.1 (3.5-5.1) mmol/L Chloride 107 (98-107) mmol/L Carbon Dioxide 22 (22-30) mmol/L Anion Gap 10 mmol/L BUN 12 (7-17) mg/dL Creatinine 0.76 (0.52-1.04) mg/dL Est GFR (CKD-EPI)AfAm >90 (>60 ml/min/1.73 sqM) Est GFR (CKD-EPI)NonAf >90 (>60 ml/min/1.73 sqM) Glucose 88 (74-99) mg/dL Calcium 9.8 (8.4-10.2) mg/dL Total Bilirubin 1.0 (0.2-1.3) mg/dL AST 27 (14-36) U/L ALT 40 H (4-34) U/L Alkaline Phosphatase 64 (38-126) U/L Total Protein 7.6 (6.3-8.2) g/dL Albumin 4.7 (3.5-5.0) g/dL Lipase 56 (23-300) U/L Urine Color Light Yellow Urine Appearance Clear (Clear) Urine pH 5.5 (5.0-8.0) Ur Specific [place] 1.019 (1.001-1.035) Urine Protein Negative (Negative) Urine Glucose (UA) Negative (Negative) Urine Ketones 1+ H (Negative) Urine Blood Negative (Negative) Urine Nitrite Negative (Negative) Urine Bilirubin Negative (Negative) Urine Urobilinogen <2.0 (<2.0) mg/dL Ur Leukocyte Esterase Small H (Negative) Urine RBC 1 (0-5) /hpf Urine WBC 11 H (0-5) /hpf Ur Squamous Epith Cells 4 (0-4) /hpf Urine Mucus Rare H (None) /hpf Urine HCG, Qual (Not Detectd) Salicylates <1.0 mg/dL Urine Opiates Screen Not Detected (NotDetected) Ur Oxycodone Screen Not Detected (NotDetected) Urine Methadone Screen Not Detected (NotDetected) Acetaminophen <10.0 ug/mL Ur Barbiturates Screen Not Detected (NotDetected) U Tricyclic Antidepress Not Detected (NotDetected) Ur Phencyclidine Scrn Not Detected (NotDetected) Ur Amphetamines Screen Detected H (NotDetected) U Methamphetamines Scrn Not Detected (NotDetected) U Benzodiazepines Scrn Not Detected (NotDetected) Urine Cocaine Screen Not Detected (NotDetected) U Marijuana (THC) Screen Detected H (NotDetected) Serum Alcohol <10 mg/dL 11/26/23 Range/Units 22:37 WBC (4.0-11.0) k/uL RBC (3.80-5.40) m/uL Hgb (11.4-16.0) gm/dL Hct (34.0-46.0) % MCV (80.0-100.0) fL MCH (25.0-35.0) pg MCHC (31.0-37.0) g/dL RDW (11.5-15.5) % Plt Count (150-450) k/uL MPV Neutrophils % % Lymphocytes % % Monocytes % % Eosinophils % % Basophils % % Neutrophils # (1.3-7.7) k/uL Lymphocytes # (1.0-4.8) k/uL Monocytes # (0-1.0) k/uL Eosinophils # (0-0.7) k/uL Basophils # (0-0.2) k/uL Sodium (137-145) mmol/L Potassium (3.5-5.1) mmol/L Chloride (98-107) mmol/L Carbon Dioxide (22-30) mmol/L Anion Gap mmol/L BUN (7-17) mg/dL Creatinine (0.52-1.04) mg/dL Est GFR (CKD-EPI)AfAm (>60 ml/min/1.73 sqM) Est GFR (CKD-EPI)NonAf (>60 ml/min/1.73 sqM) Glucose (74-99) mg/dL Calcium (8.4-10.2) mg/dL Total Bilirubin (0.2-1.3) mg/dL AST (14-36) U/L ALT (4-34) U/L Alkaline Phosphatase (38-126) U/L Total Protein (6.3-8.2) g/dL Albumin (3.5-5.0) g/dL Lipase (23-300) U/L Urine Color Urine Appearance (Clear) Urine pH (5.0-8.0) Ur Specific [place] (1.001-1.035) Urine Protein (Negative) Urine Glucose (UA) (Negative) Urine Ketones (Negative) Urine Blood (Negative) Urine Nitrite (Negative) Urine Bilirubin (Negative) Urine Urobilinogen (<2.0) mg/dL Ur Leukocyte Esterase (Negative) Urine RBC (0-5) /hpf Urine WBC (0-5) /hpf Ur Squamous Epith Cells (0-4) /hpf Urine Mucus (None) /hpf Urine HCG, Qual Not Detected (Not Detectd) Salicylates mg/dL Urine Opiates Screen (NotDetected) Ur Oxycodone Screen (NotDetected) Urine Methadone Screen (NotDetected) Acetaminophen ug/mL Ur Barbiturates Screen (NotDetected) U Tricyclic Antidepress (NotDetected) Ur Phencyclidine Scrn (NotDetected) Ur Amphetamines Screen (NotDetected) U Methamphetamines Scrn (NotDetected) U Benzodiazepines Scrn (NotDetected) Urine Cocaine Screen (NotDetected) U Marijuana (THC) Screen (NotDetected) Serum Alcohol mg/dL Critical Care Time Critical Care Time: Yes Total Critical Care Time: 35 <George Givens - Last Filed: 11/27/23 13:53> Disposition <Serafin Gatica - Last Filed: 11/26/23 23:26> Is patient prescribed a controlled substance at d/c from ED?: No Time of Disposition: 13:53 <George Givens - Last Filed: 11/27/23 13:53> Clinical Impression: Suicide attempt, Overdose Disposition: ADMITTED IP TO THIS [facility] Condition: Stable Referrals: Ian Ruiz MD [Primary Care Provider] - 1-2 days
[2023-11-26 23:38] LABS: Appearance,Urine Clear (Clear); Bilirubin,Urine Negative (Negative); Blood,Urine Negative (Negative); Color,Urine Light Yellow; Glucose,Urine (UA) Negative (Negative); Ketones,Urine 1+ (Negative); Leukocyte Esterase,Urine Small (Negative); Mucus,Urine Rare /hpf; Nitrite,Urine Negative (Negative); PH, Urine 5.5 (5.0-8.0); Protein,Urine Negative (Negative); RBC,Urine 1 /hpf (0-5); Specific Gravity,Urine 1.019 (1.001-1.035); Squamous Epithelial Cell,Urine 4 /hpf (0-4); Urobilinogen,Urine <2.0 mg/dL (<2.0); WBC,Urine 11 /hpf (0-5)
[2023-11-26 23:44] LABS: Amphetamine Screen,Urine Detected (NotDetected); Barbiturate Screen,Urine Not Detected (NotDetected); Benzodiazepines Screen,Urine Not Detected (NotDetected); Cocaine Screen,Urine Not Detected (NotDetected); Methadone Screen, Urine Not Detected (NotDetected); Opiate Screen,Urine Not Detected (NotDetected); Oxycodone Screen, Urine Not Detected (NotDetected); Phencyclidine Screen,Urine Not Detected (NotDetected); Tricyclic Antidepressant,Urine Not Detected (NotDetected); Urn Cannabinoid Scrn Detected (NotDetected)
[2023-11-27] MEDS: ACETAMINOPHEN TAB 500 MG TAB PO STA ×2 (00:08→10:20)
[2023-11-27] MEDS: IBUPROFEN 400 MG TAB PO STA ×2 (00:09→10:19)
[2023-11-27] MEDS: LORazepam 2 MG/ML INJ IV STA (03:40)
[2023-11-27] MEDS: LORazepam 2 MG/ML INJ IM STA (11:42)
[2023-11-27] MEDS: ZIPRASIDONE 20 MG VIAL IM STA (14:58)
[2023-11-27] MEDS ORDERED: HALOPERIDOL LACTATE 5 MG/ML 1 ML VIAL IM PRN (17:40)
[2023-11-27] MEDS ORDERED: MAGNESIUM HYDROXIDE 2,400 MG/30 ML CUP PO PRN (17:40)
[2023-11-27] MEDS ORDERED: LORazepam 2 MG/ML INJ IM PRN (17:40)
[2023-11-27] MEDS ORDERED: MAG HYDROX/AL HYDROX/SIMETH 355 ML BOTTLE PO PRN (17:40)
[2023-11-27] MEDS ORDERED: ONDANSETRON ODT 8 MG TAB.RAPDIS PO PRN (17:42)
[2023-11-27] MEDS ORDERED: FLUTICASONE 50MCG/SPRAY NASAL 16GM EA NOSTRIL PRN (17:42)
[2023-11-28] MEDS: VENLAFAXINE HCL ER 75 MG CAP PO SCH (08:36)
[2023-11-28] MEDS: PANTOPRAZOLE 40 MG TABLET PO SCH (08:36)
[2023-11-28] MEDS: MONTELUKAST 10 MG TAB PO SCH (08:37)
[2023-11-28] MEDS: CHOLECALCIFEROL 25 MCG (1000 IU) TABLET PO SCH (08:37)
[2023-11-28] MEDS: NICOTINE 14MG/24HR PATCH TRANSDERM SCH (08:40)
[2023-11-28] MEDS ORDERED: VENLAFAXINE HCL ER 150 MG CAP PO SCH (09:00)
[2023-11-28 11:28] LABS: Basophils # (A) 0.1 k/uL (0-0.2); Basophils % (A) 1 %; Eosinophils # (A) 0.2 k/uL (0-0.7); Eosinophils % (A) 2 %; HCT 48.5 % (34.0-46.0); HGB 16.2 gm/dL (11.4-16.0); Lymphocytes % (A) 20 %; MCH 31.1 pg (25.0-35.0); MCHC 33.4 g/dL (31.0-37.0); MCV 93.1 fL (80.0-100.0); Mean Platelet Volume 8.3; Monocytes # (A) 0.6 k/uL (0-1.0); Monocytes % (A) 6 %; Neutrophils # (A) 7.1 k/uL (1.3-7.7); Neutrophils % (A) 71 %; Platelet Count 362 k/uL (150-450); RBC 5.21 m/uL (3.80-5.40); RDW 12.8 % (11.5-15.5)
[2023-11-28 11:42] LABS: ALT 43 U/L (4-34); AST 32 U/L (14-36); African American GFR (CKD) >90 (>60 ml/min/1.73 sqM); Albumin 5.2 g/dL (3.5-5.0); Alkaline Phosphatase 66 U/L (38-126); Anion Gap 14 mmol/L; Bilirubin, Delta 0.3 mg/dL (0.0-0.2); Blood Urea Nitrogen 16 mg/dL (7-17); Calcium 10.2 mg/dL (8.4-10.2); Carbon Dioxide 21 mmol/L (22-30); Chloride 104 mmol/L (98-107); Glucose 96 mg/dL (74-99); Non-African American GFR(CKD) >90 (>60 ml/min/1.73 sqM); Potassium 4.7 mmol/L (3.5-5.1); Sodium 139 mmol/L (137-145); Total Bilirubin 1.3 mg/dL (0.2-1.3); Total Protein 8.4 g/dL (6.3-8.2)
[2023-11-28 15:33] LABS: Chol/HDL Ratio 4.13 Ratio; LDL Cholesterol,Calculated 97.2 mg/dL (0.0-131.0)
[2023-11-28] MEDS: traZODone HCL 50 MG TAB PO PRN (21:20)
--- NOTE | 2023-11-28 22:09 | P.HP ---
Psychiatric H&P - . H&P Date: 11/28/23 History & Physical: Allergies Allergy/AdvReac Type Severity Reaction Status Date / Time Latex, Natural Rubber Allergy red & Verified 11/27/23 11:10 itchy skin, rash Penicillins Allergy Rash/Hives Verified 11/27/23 11:10 Vital Signs Temp 97.4 F L 11/28/23 05:16 Pulse 119 H 11/28/23 05:16 Resp 14 11/28/23 05:16 BP 127/84 11/28/23 05:16 Pulse Ox 100 11/27/23 19:20 FiO2 Intake & Output 11/28/23 11/28/23 11/29/23 06:59 18:59 06:59 Weight 132 kg Laboratory Last Values WBC 10.0 k/uL (4.0-11.0) 11/28/23 10:36 RBC 5.21 m/uL (3.80-5.40) 11/28/23 10:36 Hgb 16.2 gm/dL (11.4-16.0) H 11/28/23 10:36 Hct 48.5 % (34.0-46.0) H 11/28/23 10:36 MCV 93.1 fL (80.0-100.0) 11/28/23 10:36 MCH 31.1 pg (25.0-35.0) 11/28/23 10:36 MCHC 33.4 g/dL (31.0-37.0) 11/28/23 10:36 RDW 12.8 % (11.5-15.5) 11/28/23 10:36 Plt Count 362 k/uL (150-450) 11/28/23 10:36 MPV 8.3 11/28/23 10:36 Neutrophils % 71 % 11/28/23 10:36 Lymphocytes % 20 % 11/28/23 10:36 Monocytes % 6 % 11/28/23 10:36 Eosinophils % 2 % 11/28/23 10:36 Basophils % 1 % 11/28/23 10:36 Neutrophils # 7.1 k/uL (1.3-7.7) 11/28/23 10:36 Lymphocytes # 2.0 k/uL (1.0-4.8) 11/28/23 10:36 Monocytes # 0.6 k/uL (0-1.0) 11/28/23 10:36 Eosinophils # 0.2 k/uL (0-0.7) 11/28/23 10:36 Basophils # 0.1 k/uL (0-0.2) 11/28/23 10:36 Sodium 139 mmol/L (137-145) 11/28/23 10:36 Potassium 4.7 mmol/L (3.5-5.1) 11/28/23 10:36 Chloride 104 mmol/L (98-107) 11/28/23 10:36 Carbon Dioxide 21 mmol/L (22-30) L 11/28/23 10:36 Anion Gap 14 mmol/L 11/28/23 10:36 BUN 16 mg/dL (7-17) 11/28/23 10:36 Creatinine 0.88 mg/dL (0.52-1.04) 11/28/23 10:36 Est GFR (CKD-EPI)AfAm >90 (>60 ml/min/1.73 sqM) 11/28/23 10:36 Est GFR (CKD-EPI)NonAf >90 (>60 ml/min/1.73 sqM) 11/28/23 10:36 Glucose 96 mg/dL (74-99) 11/28/23 10:[address] Glu mg/dL 103 mg/dL 11/28/23 10:35 Hemoglobin A1c 5.2 % (<=6.0) 11/28/23 10:35 Calcium 10.2 mg/dL (8.4-10.2) 11/28/23 10:36 Total Bilirubin 1.3 mg/dL (0.2-1.3) 11/28/23 10:36 Conjugated Bilirubin 0.0 mg/dL (0.0-0.3) 11/28/23 10:36 Unconjugated Bilirubin 1.0 mg/dL (0.0-1.1) 11/28/23 10:36 Delta Bilirubin 0.3 mg/dL (0.0-0.2) H 11/28/23 10:36 AST 32 U/L (14-36) 11/28/23 10:36 ALT 43 U/L (4-34) H 11/28/23 10:36 Alkaline Phosphatase 66 U/L (38-126) 11/28/23 10:36 Total Protein 8.4 g/dL (6.3-8.2) H 11/28/23 10:36 Albumin 5.2 g/dL (3.5-5.0) H 11/28/23 10:36 Triglycerides 124.00 mg/dL (0.00-149.00) Psychiatric Evaluation Identifying Data: Ms. Ramirez is 18 years old, single, W.F., who lives in [place], [place], in an apartment by herself. Chief Complaint: I woke and did not feel quite myself, felt very depressed and suicidal History of Psychiatric Illness- Current psychiatric History: The patient noted that she was talking to her mother about not feeling right, depressed, and suicidal. She told the mother that she does not want to be here. The mother called the EMS and was brought to the hospital. The patient noted that her current episode started in August of this year when she moved to an apartment from her mothers house. The patient reported symptoms of lack of appetite, sleeping a lot, lack of motivation, not wanting to go to work, crying a lot, emotional lability, loss of interest and lonely. The patient denied being worthless, hopeless, suicidal, or homicidal. The patient noted that thought of not being here only occurred yesterday. She was evaluated in the ER and then admitted to psychiatric floor. The patient did mention that she had not taken her medication for 2 weeks prior coming to the hospital. Past Psychiatric History: The patient noted that she started experiencing symptoms of depression around age 13-14. The patient was seen by a therapist and a counselor. She was started on an antidepressant and an anxiolytic. The patient does not remember the names of the pill. The patient continued treatment off and on since then.as an out-pt. As per patient her medications changed over the years. She has been taking current medications for a long time. The patient has not H/O of psychiatric admissions. She has no history of suicidal or homicidal ideations or behavior in the past. Past Medication History: Vyvanse, Effexor, Vraylar and Buspar. She does not remember the names of other medications. The patient denied experiencing any side effects from psychotropic medications. Leading questions: The patient denied Depression and Anxiety. Denied SI or HI. Denied symptoms consistent with psychosis Drugs and alcohol history: The patient smokes marijuana twice a week. She smokes in a bong. She could not give the quantity. Tobacco use: She Vapes. She gets on every 2 weeks. Past Medical history: Carpal tunnel syndrome, PCOS Family History of Psychiatric Disorder: The patient noted that paternal grandmother was treated for bipolar disorder. She committed suicide by overdose. Social History and Family History: 1. Born and raised: The patient was born and raised in [place], [place]. She grew- up with 2 siblings. She was raised by her biological parents. She dropped out in 12th grade. She left home at age 14. Her longes job was 4 years at [employer]. OTC: None. Allergies: PNC Objective: MSE: Alert and attentive. Orientation times three Dressed and Groomed: Appropriately. Pleasant and cooperative. Psychomotor Activity: Normal. Speech: Normal in tone, quality, and quantity. Mood: I am feeling good Affect: Appropriate SI or HI: None. Perceptual disturbance: None. Thought Content: No paranoia or other delusional thinking noted. Thought Process: Normal. Cognition: Intact Judgment and Insight: Good AIMS: Normal Labs: None available except urine drug screening, which is positive for Marijuana, ordered. Diagnosis: Major Depressive disorder, severe, recurrent Plan and Recommendations: Continue current Medications. Monitor MS and side effects of medications and adjust medications accordingly. Provide supportive psychotherapy and psychoeducation. The patient provided Substance abuse counseling. Smoke cessation therapy. The patient to see a therapist on a regular basis once a week/ attend [facility]. CBC with Diff, CMP, TSH, Lipid Profile, HbA1c, Test ordered. Medication Consent with explanation of risk/benefits and side effects: Explained and obtained. 10:36 Cholesterol 161.00 mg/dL (0.00-200.00) 11/28/23 10:36 LDL Cholesterol, Calc 97.2 mg/dL (0.0-131.0) 11/28/23 10:36 VLDL Cholesterol, Calc 24.80 mg/dL (5.00-40.00) 11/28/23 10:36 HDL Cholesterol 39.00 mg/dL (40.00-60.00) L 11/28/23 10:36 Cholesterol/HDL Ratio 4.13 Ratio 11/28/23 10:36 Lipase 56 U/L (23-300) 11/26/23 21:26 TSH 2.680 mIU/L (0.465-4.680) 11/28/23 10:36 Urine Color Light Yellow 11/26/23 22:37 Urine Appearance Clear (Clear) 11/26/23 22:37 Urine pH 5.5 (5.0-8.0) 11/26/23 22:37 Ur Specific [place] 1.019 (1.001-1.035) 11/26/23 22:37 Urine Protein Negative (Negative) 11/26/23 22:37 Urine Glucose (UA) Negative (Negative) 11/26/23 22:37 Urine Ketones 1+ (Negative) H 11/26/23 22:37 Urine Blood Negative (Negative) 11/26/23 22:37 Urine Nitrite Negative (Negative) 11/26/23 22: Urine Bilirubin Negative (Negative) 11/26/23 22:37 Urine Urobilinogen <2.0 mg/dL (<2.0) 11/26/23 22:37 Ur Leukocyte Esterase Small (Negative) H 11/26/23 22:37 Urine RBC 1 /hpf (0-5) 11/26/23 22:37 Urine WBC 11 /hpf (0-5) H 11/26/23 22:37 Ur Squamous Epith Cells 4 /hpf (0-4) 11/26/23 22:37 Urine Mucus Rare /hpf (None) H 11/26/23 22:37 Urine HCG, Qual Not Detected (Not Detectd) 11/26/23 22:37 Salicylates <1.0 mg/dL 11/26/23 21:26 Urine Opiates Screen Not Detected (NotDetected) 11/26/23 22:37 Ur Oxycodone Screen Not Detected (NotDetected) 11/26/23 22:37 Urine Methadone Screen Not Detected (NotDetected) 11/26/23 22:37 Acetaminophen <10.0 ug/mL 11/26/23 21:26 Ur Barbiturates Screen Not Detected (NotDetected) 11/26/23 22:37 U Tricyclic Antidepress Not Detected (NotDetected) 11/26/23 22:37 Ur Phencyclidine Scrn Not Detected (NotDetected) 11/26/23 22:37 Ur Amphetamines Screen Detected (NotDetected) H 11/26/23 22:37 U Methamphetamines Scrn Not Detected (NotDetected) 11/26/23 22:37 U Benzodiazepines Scrn Not Detected (NotDetected) 11/26/23 22:37 Urine Cocaine Screen Not Detected (NotDetected) 11/26/23 22:37 U Marijuana (THC) Screen Detected (NotDetected) H 11/26/23 22:37 Serum Alcohol <10 mg/dL 11/26/23 21:26 Influenza Type A (PCR) Not Detected (Not Detectd) 11/27/23 15:00 Influenza Type B (PCR) Not Detected (Not Detectd) 11/27/23 15:00 RSV (PCR) Not Detected (Not Detectd) 11/27/23 15:00 SARS-CoV-2 (PCR) Not Detected (Not Detectd) 11/27/23 15:00 11/28/23 22:04
[2023-11-29] MEDS: LISDEXAMFETAMINE DIMESYLATE 60 MG PO SCH (08:35)
[2023-11-29] MEDS: haloperidoL 5 MG TAB PO PRN (08:37)
[2023-11-29] MEDS: LORazepam 1 MG TAB PO PRN (08:37)
[2023-11-29] MEDS: VENLAFAXINE HCL ER 150 MG CAP PO STA (17:52)
--- NOTE | 2023-11-29 20:30 | P.PN ---
Progress Note - Text Progress Note Date: 11/29/23 In-Patient Follow-up Chief Complaint: I am feeling fine Subjective: The patient feeling fine. She continues to have anxiety and depression. She noted that her medications are not working. She feels no different on Vraylar and Effexor. A meeting phone meeting was held with patient s mother. She noted that the patient has declined since moving out from home. She stated that the patient gets very paranoid. She believes that people are watching her, following her, saying mean things about her. She noted that patient can very angry, defensive, argumentative. She has difficulty in getting along with people. She indicated that patient has taken Vyvanse for ADHD for a longtime. She also noted that the patient has been having staring spells. They have developed recently. During these episodes, she does niecy respond till the episode is over. The patient had CT scan, which was normal. She was referred to neurologist but never made an appointment. The patient has been under psychiatric treatment since age 10. She used to see Dr. Cerda. She went to therapist also. Discussed with patient treatment plan. Suggested to discontinue Vyvanse. Slowly decrease Effexor and discontinue Vraylar. Discussed alternate treatment. Suggested Prozac and Abilify. Prozac to be started after tapering off Effexor. The patient understood and agreed. Leading questions: The patient admitted to Depression and Anxiety. Denied SI or HI. Denied symptoms consistent with psychosis except did say that she has some paranoia. Sleep and Appetite: fine. Interim History: Behavioral Changes: None. PRN meds/isolation/restraints/ change in status: None. Change in medical condition: No change. Change in medications: No change. Side effects from Medications: None. Objective- MSE: Alert and attentive. Orientation times three. Dressed and Groomed: Appropriately. Pleasant and cooperative. Psychomotor Activity: Normal. Speech: Normal in tone, quality, and quantity. Mood: Depressed and Anxious Affect: consistent with mood. SI or HI: None. Perceptual disturbance: None. Thought Content: Mild paranoia. No other delusional thinking noted. Thought Process: Normal. Cognition: Intact Judgment and Insight: Fair AIMS: Normal. Labs: No new labs. Vital signs: Diagnosis: Plan and recommendation: Taper Effexor, D/C Vraylar, D/Myles Mujica. Add Abilify 2 mg at bedtime. Monitor MS and side effects of medications and adjust medications accordingly. Provide supportive psychotherapy. The patient provided psychoeducation. The patient provided Substance abuse counseling. Smoke cessation therapy. The patient to continue attending the [facility] activities. Medication Consent with explanation of risk/benefits and side effects: Explained and obtained.
--- NOTE | 2023-11-30 04:37 | HP ---
HISTORY AND PHYSICAL CHIEF COMPLAINT: Acute psychosis with depressed and suicidal thoughts. HISTORY OF PRESENT ILLNESS: First known admission for this 18-year-old female. She has had extensive behavior and psychiatric issues most of her life. She apparently became very psychotic, agitated, and was brought to the emergency room by EMS and the police. There, she became very violent and then was admitted to the psych unit and had to be sedated. She has been treated at [facility], but does not take medications consistently. There is a family history. REVIEW OF SYSTEMS: She denies headaches, chest pain, abdominal pain, melena, hematochezia, diabetes, etc. Past medical history, family history, personal and social histories are otherwise unremarkable and noncontributory, and can be found in her admitting summary. PHYSICAL EXAMINATION: VITAL SIGNS: Normal. HEAD, EARS, EYES, NOSE, MOUTH: Normal. CHEST: Clear. CARDIAC: Normal. ABDOMEN: Soft without masses. EXTREMITIES: Normal. IMPRESSION: 1. Acute psychosis. 2. Major depression. 3. Suicidal personality. 4. Possible schizoaffective disorder. 5. Possible borderline personality. PLAN: Follow guidelines and recommendations from psychiatry. MMODL / IJN: [id number] /
[2023-11-30] MEDS: ARIPiprazole 2 MG TAB PO SCH (08:37)
[2023-11-30] MEDS: LISDEXAMFETAMINE PO SCH (08:39)
--- NOTE | 2023-11-30 16:53 | P.PN ---
Progress Note - Text Progress Note Date: 11/30/23 In-Patient Follow-up Chief Complaint: I am feeling fine Subjective: The patient is feeling fine. She was seen her room. The was very sleepy. She did not take her Vyvanse this morning. She also got her Abilify this morning. Combination of these things resulted her to be very tired. The patient stated she pretty good. She has been visible on the unit. She remains depressed and anxious but was less hostile and angry. Slight improvement in Anger noted. Overall, patient remains the same. . Leading questions: The patient admitted to Depression and Anxiety. Denied SI or HI. Denied symptoms consistent with psychosis except did say that she has some paranoia. Sleep and Appetite: fine. Interim History: Behavioral Changes: None. PRN meds/isolation/restraints/ change in status: None. Change in medical condition: No change. Change in medications: No change. Side effects from Medications: None. Objective- MSE: Dressed and Groomed: The patient was lying in her. She was tired and sleepy. Pleasant and cooperative. Psychomotor Activity: Normal. Speech: Normal in tone, quality, and quantity. Mood: Depressed and Anxious Affect: consistent with mood. SI or HI: None. Perceptual disturbance: None. Thought Content: Mild paranoia. No other delusional thinking noted. Thought Process: Normal. Cognition: Intact Judgment and Insight: Fair AIMS: Normal. Labs: No new labs. Vital signs: Diagnosis: Major Depressive Disorder Possible Paranoid personality Disorder R/O Drug induced paranoia Plan and recommendation: Add Prozac to patient treatment when the dose of Effexor is decreased to 75 mg daily. Monitor MS and side effects of medications and adjust medications accordingly. Provide supportive psychotherapy. The patient provided psychoeducation The patient provided Substance abuse counseling. Smoke cessation therapy. The patient to continue attending the [facility] activities. Medication Consent with explanation of risk/benefits and side effects: Explained and obtained.
[2023-12-01] MEDS: VENLAFAXINE HCL 50 MG TAB PO SCH (08:32)
[2023-12-01] MEDS ORDERED: FLUoxetine HCL 10 MG CAP PO SCH (09:00)
--- NOTE | 2023-12-01 11:26 | P.PN ---
Subjective Progress Note Date: 12/01/23 Principal diagnosis: Diagnosis: Major Depressive Disorder adult ADHD Possible Paranoid personality Disorder R/O Drug induced paranoia Patient Name: Dior Ramirez Date of : [birth year] Patient Status: Inpatient Attending Provider: Ney Barajas Date: 12/01/23 Initialization Date: 11/30/23 16:52 In-Patient Follow-up Chief Complaint: Ambien depressed Patient was seen chart was reviewed and case discussed with the nursing staff She reports that she's been here for about 3 day she said that she took an overdose of Vyvanse where she took about 6 tablets She says that her problems were life in general where her bills were piling up She says that she currently lives alone She said that 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 Leading questions: The patient admitted to Depression and Anxiety. Denied SI or HI. Denied symptoms consistent with psychosis except did say that she has some paranoia. Sleep and Appetite: states that she sleeps and eats too much Interim History: Behavioral Changes: None. PRN meds/isolation/restraints/ change in status: None. Change in medical condition: No change. Change in medications: No change. Side effects from Medications: None. Objective- MSE: Dressed and Groomed: The patient was lying in her. She was tired and sleepy. Pleasant and cooperative. Psychomotor Activity: Normal. Speech: Normal in tone, quality, and quantity. Mood: Depressed and Anxious Affect: consistent with mood. SI or HI: None. Perceptual disturbance: None. Thought Content: Mild paranoia. No other delusional thinking noted. Thought Process: Normal. Cognition: Intact Judgment and Insight: Fair AIMS: Normal. Labs: No new labs. Vital signs: Diagnosis: Major Depressive Disorder ADHD by history Possible Paranoid personality Disorder R/O Drug induced paranoia Plan and recommendation: we'll continue on the recommended plan by Dr. Barajas Add Prozac to patient treatment when the dose of Effexor is decreased to 75 mg daily. Monitor MS and side effects of medications and adjust medications accordingly. Provide supportive psychotherapy. The patient provided psychoeducation The patient provided Substance abuse counseling. Smoke cessation therapy. The patient to continue attending the [facility] activities. Medication Consent with explanation of risk/benefits and side effects: Explained and obtained. Patricio Donaldson M.D. Objective - Vital Signs Vital signs: Vital Signs Temp 97.6 F 12/01/23 06:08 Pulse 86 12/01/23 06:08 Resp 18 12/01/23 06:08 BP 131/75 12/01/23 06:08 Pulse Ox 98 12/01/23 06:08 FiO2 - Labs CBC & Chem 7: 11/28/23 10:36 11/28/23 10:36
[2023-12-01] MEDS: ARIPiprazole 2 MG TAB PO SCH (20:25)
[2023-12-02 06:21] VITALS: RESP 16
[2023-12-02] MEDS: IBUPROFEN 600 MG TAB PO PRN (06:26)
--- NOTE | 2023-12-02 10:43 | P.PN ---
Subjective Progress Note Date: 12/02/23 Principal diagnosis: Diagnosis: Major Depressive Disorder adult ADHD Possible Paranoid personality Disorder R/O Drug induced paranoia Patient Name: Dior Ramirez Date of : [birth year] Patient Status: Inpatient Attending Provider: Ney Barajas Date: 12/02/23 Initialization Date: 11/30/23 16:52 In-Patient Follow-up Chief Complaint: Ambien depressed Patient was seen chart was reviewed and case discussed with the nursing staff Patient reports that she is feeling better She states that she needs to get back home and get her matters straightened out some including giving and paying out of the bills She states that her parents have agreed to help her out She states that she also plans to get a part-time job after she is released She does not feel that any further stay on the unit will be more helpful and that she would like to start making plans for being released She is open to having a family meeting with her parents Leading questions: The patient admitted to Depression and Anxiety. Denied SI or HI. Sleep and Appetite: states that she sleeps and eats too much Interim History: Behavioral Changes: None. PRN meds/isolation/restraints/ change in status: None. Change in medical condition: No change. Change in medications: No change. Side effects from Medications: None. Objective- MSE: Dressed and Groomed: The patient was lying in her. She was tired and sleepy. Pleasant and cooperative. Psychomotor Activity: Normal. Speech: Normal in tone, quality, and quantity. Mood: Depressed and Anxious Affect: consistent with mood. SI or HI: None. Perceptual disturbance: None. Thought Content: Mild paranoia. No other delusional thinking noted. Thought Process: Normal. Cognition: Intact Judgment and Insight: Fair AIMS: Normal. Labs: No new labs. Vital signs: Diagnosis: Major Depressive Disorder ADHD by history Possible Paranoid personality Disorder R/O Drug induced paranoia Plan and recommendation: we'll continue on the recommended plan by Dr. Barajas Add Prozac to patient treatment when the dose of Effexor is decreased to 75 mg daily. Monitor MS and side effects of medications and adjust medications accordingly. Provide supportive psychotherapy. The patient provided psychoeducation The patient provided Substance abuse counseling. Smoke cessation therapy. The patient to continue attending the [facility] activities. Medication Consent with explanation of risk/benefits and side effects: Explained and obtained. Patricio Donaldson M.D. Objective - Vital Signs Vital signs: Vital Signs Temp 98 F 12/02/23 05:50 Pulse 86 12/02/23 05:50 Resp 16 12/02/23 05:50 BP 122/73 12/02/23 05:50 Pulse Ox 98 12/02/23 05:50 FiO2 Intake & Output 12/01/23 12/02/23 12/02/23 18:59 06:59 18:59 Weight 135.9 kg - Labs CBC & Chem 7: 11/28/23 10:36 11/28/23 10:36
[2023-12-03] MEDS: ACETAMINOPHEN TAB 325 MG TAB PO PRN (04:55)
[2023-12-03 07:02] VITALS: BP 131/79; PULSE 82; TEMP 98
[2023-12-03] MEDS ORDERED: FLUoxetine HCL 10 MG CAP PO SCH (15:00)
--- NOTE | 2023-12-03 20:35 | P.DS ---
Providers Date of admission: 11/27/23 17:12 Expected date of discharge: 12/03/23 Attending physician: Ney Barajas MD Consults: 11/27/23 17:40 Consult Physician Routine Consulting Provider: Ian Ruiz Consult Reason/Comments: Medical H&P Do you want consulting provider notified?: Yes Primary care physician: Ian Ruiz - Discharge Diagnosis(es) (1) Major depressive disorder, recurrent, severe without psychotic features Status: Acute Priority: High Patient Condition at Discharge: Stable Plan - Discharge Summary Discharge Rx Participant: Yes New Discharge Prescriptions: New ARIPiprazole [Abilify] 2 mg PO HS 30 Days #30 tab Nicotine 14Mg/24Hr Patch [Habitrol] 1 patch TRANSDERM DAILY patch FLUoxetine HCL [PROzac] 10 mg PO DAILY 30 Days #30 cap traZODone HCL [Desyrel] 50 mg PO HS PRN 30 Days #30 tab PRN Reason: Insomnia Continue Fluticasone Nasal [place] [Flonase Nasal [place]] 1 - 2 spray EA NOSTRIL BID PRN PRN Reason: Allergy Symptoms Montelukast [Singulair] 10 mg PO DAILY Pantoprazole [Protonix] 40 mg PO DAILY Cholecalciferol (Vitamin D3) [Vitamin D3 (50 Mcg = 2000 Iu)] 50 mcg PO DAILY Discontinued Ondansetron Odt [Zofran Odt] 8 mg PO Q8HR PRN PRN Reason: Nausea Lisdexamfetamine Dimesylate [Vyvanse] 60 mg PO DAILY Venlafaxine HCl [Effexor XR] 75 mg PO DAILY Venlafaxine HCl [Effexor XR] 150 mg PO DAILY Cariprazine HCl [Vraylar] 3 mg PO DAILY Discharge Medication List Montelukast [Singulair] 10 mg PO DAILY 08/18/22 [History] Cholecalciferol (Vitamin D3) [Vitamin D3 (50 Mcg = 2000 Iu)] 50 mcg PO DAILY 11/27/23 [History] Fluticasone Nasal [place] [Flonase Nasal [place]] 1 - 2 spray EA NOSTRIL BID PRN 11/27/23 [History] Pantoprazole [Protonix] 40 mg PO DAILY 11/27/23 [History] ARIPiprazole [Abilify] 2 mg PO HS 30 Days #30 tab 12/03/23 [Rx] FLUoxetine HCL [PROzac] 10 mg PO DAILY 30 Days #30 cap 12/03/23 [Rx] Nicotine 14Mg/24Hr Patch [Habitrol] 1 patch TRANSDERM DAILY patch 12/03/23 [Rx] traZODone HCL [Desyrel] 50 mg PO HS PRN 30 Days #30 tab 12/03/23 [Rx] Follow up Appointment(s)/Referral(s): [facility] [Outside] - 12/05/23 1:00 pm (12/05/2023 1:00PM - 2:00PM VIVIANA JASPREETEPHRAIM 12/14/2023 8:30AM - 9:00AM RYAN ADAMSON ) Ian Ruiz MD [Primary Care Provider] - 1-2 days Activity/Diet/Wound Care/Special Instructions: Avoid the use of street drugs and alcohol. Take all medications as prescribed. When you are in need of refills on your medications, please contact your medical provider and/or outpatient psychiatrist/provider to have this done. Please go to your scheduled outpatient appointment for aftercare treatment. If symptoms return or become worse, call the crisis line at and/or go to the nearest emergency room for evaluation. National Suicide Hotline 988 Discharge Disposition: HOME SELF-CARE
== END 2023-12-03 13:38 | disposition home or self-care (01) | DRG 885 ==
LOC: EC 20:45 → 3MHU 11-27 17:12
PROVIDERS: ADMIT Psychiatry & Neurology Psychiatry; ATTEND Psychiatry & Neurology Psychiatry
DX: F33.2 Major depressive disorder, recurrent severe without psychotic features (principal); F90.9 Attention-deficit hyperactivity disorder, unspecified type; G47.00 Insomnia, unspecified; T50.902A Poisoning by unspecified drugs, medicaments and biological substances, intentional self-harm, initial encounter; Z72.0 Tobacco use
CPT/HCPCS: 36415; 80053; 80061; 80143; 80179; 80306; 80320; 81001; 81025; 82075; 82248; 83036; 83690; 84443; 85025; 87636; 93005; 96372; 96374; 99291

== ENCOUNTER 2024-07-24 19:21 | Emergency (ER) | payer OTHER ==
--- NOTE | 2024-07-24 20:31 | ED ---
Female Urogenital HPI - General Source: patient, RN notes reviewed Mode of arrival: ambulatory Limitations: no limitations - History of Present Illness MD Complaint: vaginal bleeding <Braden Stevens - Last Filed: 07/24/24 20:27> <Mago Moise - Last Filed: 07/25/24 04:02> - General Chief complaint: Vaginal Bleeding Stated complaint: 8wks preg,vaginal bleeding - History of Present Illness Initial comments: Quick note: This is a 19-year-old female presenting with vaginal bleeding x 2 hours. Patient states she is currently 8 weeks and 4 days . States she noted blood on toilet paper after wiping, causing her concern to come to the ER for further evaluation. Endorses lower abdominal cramping with associated nausea/vomiting x 7 days. Patient states pain is intermittent but has worsening since yesterday. Endorses constipation x 2 weeks. States she has not yet seen an OB regarding her . Denies fever, chills, dizziness, urinary symptoms, hematemesis. (Braden Stevens) Dior a pleasant 19-year-old female currently 8 weeks first . Patient states that for the past couple of weeks she has had nausea starts in the morning last or most the day she usually feels okay by the evening and can tolerate some intake. Patient states that she started having a little bit of pelvic cramping yesterday and today after urinating noticed a streak of blood on the paper. No passing large amounts of blood or clots. Patient did have an ultrasound about a week and a half ago at [facility] at that time she was not have any symptoms wanted to confirm and dates. Patient states that she was told she had a single intrauterine . Patient is going to follow-up with [facility] OB appointment after the first of the year. (Mago Moise) - Related Data Home Medications Medication Instructions Recorded Confirmed Montelukast [Singulair] 10 mg PO DAILY 08/18/22 11/27/23 Cholecalciferol (Vitamin D3) 50 mcg PO DAILY 11/27/23 11/27/23 [Vitamin D3 (50 Mcg = 2000 Iu)] Fluticasone Nasal [place] [Flonase 1 - 2 spray EA NOSTRIL BID PRN 11/27/23 11/27/23 Nasal [place]] Pantoprazole [Protonix] 40 mg PO DAILY 11/27/23 11/27/23 Previous Rx's Medication Instructions Recorded ARIPiprazole [Abilify] 2 mg PO HS 30 Days #30 tab 12/03/23 FLUoxetine HCL [PROzac] 10 mg PO DAILY 30 Days #30 cap 12/03/23 Nicotine 14Mg/24Hr Patch [Habitrol] 1 patch TRANSDERM DAILY patch 12/03/23 traZODone HCL [Desyrel] 50 mg PO HS PRN 30 Days #30 tab 12/03/23 Allergies Allergy/AdvReac Type Severity Reaction Status Date / Time Latex, Natural Rubber Allergy red & Verified 07/24/24 20:00 itchy skin, rash Penicillins Allergy Rash/Hives Verified 07/24/24 20:00 Review of Systems ROS Other: All systems not noted in ROS Statement are negative. <Braden Stevens - Last Filed: 07/24/24 20:27> ROS Other: All systems not noted in ROS Statement are negative. <Mago Moise - Last Filed: 07/25/24 04:02> ROS Statement: Those systems with pertinent positive or pertinent negative responses have been documented in the HPI. Past Medical History Past Medical History: Thyroid Disorder Additional Past Medical History / Comment(s): polycystic ovaries, migraines. SEASONAL ALLERGIES, carpel tunnel History of Any Multi-Drug Resistant Organisms: None Reported Past Surgical History: No Surgical Hx Reported Additional Past Surgical History / Comment(s): Left wrist surgery Additional Past Anesthesia/Blood Transfusion Reaction / Comment(s): NEVER HAD ANESTHESIA. Past Psychological History: ADD/ADHD, Anxiety, Depression Smoking Status: Vaper Past Alcohol Use History: None Reported, Occasional Past Drug Use History: None Reported, Marijuana - Past Family History Mother Family Medical History: No Reported History <Braden Stevens - Last Filed: 07/24/24 20:27> General Exam Limitations: no limitations <Braden Stevens - Last Filed: 07/24/24 20:27> - General Exam Comments Initial Comments: Visual Physical Exam Vital signs reviewed General: Well-appearing, nontoxic, no acute distress. Head: Normocephalic, atraumatic Eyes: PERRLA, EOMI ENT: Airway patent Chest: Nonlabored breathing Skin: No visual rash, normal skin tone Neuro: Alert and oriented 3 Musculoskeletal: No gross abnormalities (Rodney,Braden) Course Vital Signs 07/24/24 07/24/24 19:55 22:36 Temperature 98.5 F 98.6 F Pulse Rate 97 74 Respiratory 18 17 Rate Blood Pressure 142/84 126/80 O2 Sat by Pulse 100 100 Oximetry Medical Decision Making <Braden Stevens - Last Filed: 07/24/24 20:27> - Lab Data Result diagrams: 07/24/24 20:36 07/24/24 20:36 <Jose MariaMago P - Last Filed: 07/25/24 04:02> - Medical Decision Making I completed the quick note portion of this chart signed ABIGAIL Najera (Braden Stevens) Was pt. sent in by a medical professional or institution (ASHER Escobar, BOOT AND SHOE REPAIRMAN, urgent care, hospital, or long-term...) When possible be specific @ -No Did you speak to anyone other than the patient for history (EMS, parent, family, police, friend...)? What history was obtained from this source @ -No Did you review nursing and triage notes (agree or disagree)? Why? @ -I reviewed and agree with nursing and triage notes Were old charts reviewed (outside hosp., previous admission, EMS record, old EKG, old radiological studies, urgent care reports/EKG's, long-term records)? Report findings @ -No old charts were reviewed Differential Diagnosis (chest pain, altered mental status, abdominal pain women, abdominal pain men, vaginal bleeding, weakness, fever, dyspnea, syncope, headache, dizziness, GI bleed, back pain, seizure, CVA, palpatations, mental health)? @ -Differential includes UTI, vaginal bleeding from trauma, vaginal bleeding from cervix due to hormonal changes, first trimester bleeding due to miscarriage threatened miscarriage, subchorionic hemorrhage, implantation bleeding EKG interpreted by me (3pts min.). @ -As above X-rays interpreted by me (1pt min.). @ -None done CT interpreted by me (1pt min.). @ -None done U/S interpreted by me (1pt. min.). @ -None done What testing was considered but not performed or refused? (CT, X-rays, U/S, labs)? Why? @ -None What meds were considered but not given or refused? Why? @ -None Did you discuss the management of the patient with other professionals (evie medina i.e. , PA, BOOT AND SHOE REPAIRMAN, lab, RT, psych nurse, social media assistant, global manager, teacher, security flex utility officer, correctional counselor/case manager)? Give summary @ -No Was smoking cessation discussed for >3mins.? @ -No Was critical care preformed (if so, how long)? @ -No Were there social determinants of health that impacted care today? How? (Homelessness, low income, unemployed, alcoholism, drug addiction, transportation, low edu. Level, literacy, decrease access to med. care, long term, rehab)? @ -No Was there de-escalation of care discussed even if they declined (Discuss DNR or withdrawal of care, Hospice)? DNR status @ -No What co-morbidities impacted this encounter? (DM, HTN, Smoking, COPD, CAD, Cancer, CVA, ARF, Chemo, Hep., AIDS, mental health diagnosis, sleep apnea, morbid obesity)? @ -None Was patient admitted / discharged? Hospital course, mention meds given and route, prescriptions, significant lab abnormalities, going to OR and other pertinent info. @ -Discharged Patient was seen and evaluated history is obtained from patient. Patient concern for dehydration was treated with 1 L of IV fluids. Pelvic ultrasound was performed and confirms a intrauterine 8 weeks 2 days which is consistent with patient's expected dates. Urinalysis no signs of infection. Results were discussed with patient who is reassured and comfortable plan for discharge home. Patient has Zofran at home for nausea. Undiagnosed new problem with uncertain prognosis? @ -No Drug Therapy requiring intensive monitoring for toxicity (Heparin, Nitro, Insulin, Cardizem)? @ -No Were any procedures done? @ -No Diagnosis/symptom? @ -Vaginal bleeding in first trimester Acute, or Chronic, or Acute on Chronic? @ -Acute Uncomplicated (without systemic symptoms) or Complicated (systemic symptoms)? @ -Default Side effects of treatment? @ -No Exacerbation, Progression, or Severe Exacerbation? @ -No Poses a threat to life or bodily function? How? (Chest pain, USA, MS, pneumonia, PE, COPD, DKA, ARF, appy, cholecystitis, CVA, Diverticulitis, Homicidal, Suicidal, threat to staff... and all critical care pts) @ -No (Mago Moise Evie) - Lab Data Lab Results 07/24/24 07/24/24 07/24/24 Range/Units 20:29 20:36 20:36 WBC 16.2 H (3.8-10.6) k/uL RBC 4.34 (3.80-5.40) m/uL Hgb 13.4 (11.4-16.0) gm/dL Hct 40.1 (34.0-46.0) % MCV 92.4 (80.0-100.0) fL MCH 30.9 (25.0-35.0) pg MCHC 33.4 (31.0-37.0) g/dL RDW 12.7 (11.5-15.5) % Plt Count 296 (150-450) k/uL MPV 8.0 Neutrophils % 82 % Lymphocytes % 12 % Monocytes % 4 % Eosinophils % 1 % Basophils % 0 % Neutrophils # 13.3 H (1.3-7.7) k/uL Lymphocytes # 1.9 (1.0-4.8) k/uL Monocytes # 0.6 (0-1.0) k/uL Eosinophils # 0.2 (0-0.7) k/uL Basophils # 0.1 (0-0.2) k/uL PT 11.1 (10.0-12.5) sec INR 1.0 (<1.2) APTT 24.9 (22.0-30.0) sec Sodium (137-145) mmol/L Potassium (3.5-5.1) mmol/L Chloride (98-107) mmol/L Carbon Dioxide (22-30) mmol/L Anion Gap mmol/L BUN (7-17) mg/dL Creatinine (0.52-1.04) mg/dL Est GFR (CKD-EPI)AfAm (>60 ml/min/1.73 sqM) Est GFR (CKD-EPI)NonAf (>60 ml/min/1.73 sqM) Glucose (74-99) mg/dL Calcium (8.4-10.2) mg/dL Total Bilirubin (0.2-1.3) mg/dL AST (14-36) U/L ALT (4-34) U/L Alkaline Phosphatase (38-126) U/L Total Protein (6.3-8.2) g/dL Albumin (3.5-5.0) g/dL HCG, Quant mIU/mL Urine Color Urine Appearance (Clear) Urine pH (5.0-8.0) Ur Specific [place] (1.001-1.035) Urine Protein (Negative) Urine Glucose (UA) (Negative) Urine Ketones (Negative) Urine Blood (Negative) Urine Nitrite (Negative) Urine Bilirubin (Negative) Urine Urobilinogen (<2.0) mg/dL Ur Leukocyte Esterase (Negative) Urine RBC (0-5) /hpf Urine WBC (0-5) /hpf Ur Squamous Epith Cells (0-4) /hpf Urine Mucus (None) /hpf Urine HCG, Qual (Not Detectd) Blood Type A Positive Blood Type Confirm Blood Type Recheck No Previous Record Bld Type Recheck Status CABO Indicated 07/24/24 07/24/24 07/24/24 Range/Units 20:36 20:43 21:06 WBC (3.8-10.6) k/uL RBC (3.80-5.40) m/uL Hgb (11.4-16.0) gm/dL Hct (34.0-46.0) % MCV (80.0-100.0) fL MCH (25.0-35.0) pg MCHC (31.0-37.0) g/dL RDW (11.5-15.5) % Plt Count (150-450) k/uL MPV Neutrophils % % Lymphocytes % % Monocytes % % Eosinophils % % Basophils % % Neutrophils # (1.3-7.7) k/uL Lymphocytes # (1.0-4.8) k/uL Monocytes # (0-1.0) k/uL Eosinophils # (0-0.7) k/uL Basophils # (0-0.2) k/uL PT (10.0-12.5) sec INR (<1.2) APTT (22.0-30.0) sec Sodium 138 (137-145) mmol/L Potassium 4.1 (3.5-5.1) mmol/L Chloride 109 H (98-107) mmol/L Carbon Dioxide 20 L (22-30) mmol/L Anion Gap 9 mmol/L BUN 12 (7-17) mg/dL Creatinine 0.76 (0.52-1.04) mg/dL Est GFR (CKD-EPI)AfAm >90 (>60 ml/min/1.73 sqM) Est GFR (CKD-EPI)NonAf >90 (>60 ml/min/1.73 sqM) Glucose 80 (74-99) mg/dL Calcium 10.0 (8.4-10.2) mg/dL Total Bilirubin 0.8 (0.2-1.3) mg/dL AST 16 (14-36) U/L ALT 19 (4-34) U/L Alkaline Phosphatase 45 (38-126) U/L Total Protein 7.1 (6.3-8.2) g/dL Albumin 4.5 (3.5-5.0) g/dL HCG, Quant 19085.4 mIU/mL Urine Color Yellow Urine Appearance Cloudy H (Clear) Urine pH 5.5 (5.0-8.0) Ur Specific [place] 1.036 H (1.001-1.035) Urine Protein Trace H (Negative) Urine Glucose (UA) Negative (Negative) Urine Ketones Trace H (Negative) Urine Blood Negative (Negative) Urine Nitrite Negative (Negative) Urine Bilirubin Negative (Negative) Urine Urobilinogen 2.0 (<2.0) mg/dL Ur Leukocyte Esterase Negative (Negative) Urine RBC 1 (0-5) /hpf Urine WBC 4 (0-5) /hpf Ur Squamous Epith Cells 4 (0-4) /hpf Urine Mucus Many H (None) /hpf Urine HCG, Qual (Not Detectd) Blood Type Blood Type Confirm A Positive Blood Type Recheck Bld Type Recheck Status 07/24/24 Range/Units 21:06 WBC (3.8-10.6) k/uL RBC (3.80-5.40) m/uL Hgb (11.4-16.0) gm/dL Hct (34.0-46.0) % MCV (80.0-100.0) fL MCH (25.0-35.0) pg MCHC (31.0-37.0) g/dL RDW (11.5-15.5) % Plt Count (150-450) k/uL MPV Neutrophils % % Lymphocytes % % Monocytes % % Eosinophils % % Basophils % % Neutrophils # (1.3-7.7) k/uL Lymphocytes # (1.0-4.8) k/uL Monocytes # (0-1.0) k/uL Eosinophils # (0-0.7) k/uL Basophils # (0-0.2) k/uL PT (10.0-12.5) sec INR (<1.2) APTT (22.0-30.0) sec Sodium (137-145) mmol/L Potassium (3.5-5.1) mmol/L Chloride (98-107) mmol/L Carbon Dioxide (22-30) mmol/L Anion Gap mmol/L BUN (7-17) mg/dL Creatinine (0.52-1.04) mg/dL Est GFR (CKD-EPI)AfAm (>60 ml/min/1.73 sqM) Est GFR (CKD-EPI)NonAf (>60 ml/min/1.73 sqM) Glucose (74-99) mg/dL Calcium (8.4-10.2) mg/dL Total Bilirubin (0.2-1.3) mg/dL AST (14-36) U/L ALT (4-34) U/L Alkaline Phosphatase (38-126) U/L Total Protein (6.3-8.2) g/dL Albumin (3.5-5.0) g/dL HCG, Quant mIU/mL Urine Color Urine Appearance (Clear) Urine pH (5.0-8.0) Ur Specific [place] (1.001-1.035) Urine Protein (Negative) Urine Glucose (UA) (Negative) Urine Ketones (Negative) Urine Blood (Negative) Urine Nitrite (Negative) Urine Bilirubin (Negative) Urine Urobilinogen (<2.0) mg/dL Ur Leukocyte Esterase (Negative) Urine RBC (0-5) /hpf Urine WBC (0-5) /hpf Ur Squamous Epith Cells (0-4) /hpf Urine Mucus (None) /hpf Urine HCG, Qual Detected (Not Detectd) Blood Type Blood Type Confirm Blood Type Recheck Bld Type Recheck Status Disposition <Braden Stevens - Last Filed: 07/24/24 20:27> Is patient prescribed a controlled substance at d/c from ED?: No <Mago Moise - Last Filed: 07/25/24 04:02> Clinical Impression: Vaginal bleeding affecting early Disposition: HOME SELF-CARE Condition: Stable Additional Instructions: Commend pelvic rest until you follow-up with [facility], this means nothing in the vagina, no intercourse, no tampons. Referrals: Ian Ruiz MD [Primary Care Provider] - 1-2 days
[2024-07-24 20:48] LABS: Basophils # (A) 0.1 k/uL (0-0.2); Basophils % (A) 0 %; Eosinophils # (A) 0.2 k/uL (0-0.7); Eosinophils % (A) 1 %; HCT 40.1 % (34.0-46.0); HGB 13.4 gm/dL (11.4-16.0); Lymphocytes # (A) 1.9 k/uL (1.0-4.8); Lymphocytes % (A) 12 %; MCH 30.9 pg (25.0-35.0); MCHC 33.4 g/dL (31.0-37.0); MCV 92.4 fL (80.0-100.0); Monocytes # (A) 0.6 k/uL (0-1.0); Monocytes % (A) 4 %; Neutrophils # (A) 13.3 k/uL (1.3-7.7); Neutrophils % (A) 82 %; Platelet Count 296 k/uL (150-450); RBC 4.34 m/uL (3.80-5.40); RDW 12.7 % (11.5-15.5); WBC 16.2 k/uL (3.8-10.6)
[2024-07-24 21:01] LABS: ALT 19 U/L (4-34); AST 16 U/L (14-36); African American GFR (CKD) >90 (>60 ml/min/1.73 sqM); Albumin 4.5 g/dL (3.5-5.0); Alkaline Phosphatase 45 U/L (38-126); Anion Gap 9 mmol/L; Blood Urea Nitrogen 12 mg/dL (7-17); Carbon Dioxide 20 mmol/L (22-30); Chloride 109 mmol/L (98-107); Glucose 80 mg/dL (74-99); Non-African American GFR(CKD) >90 (>60 ml/min/1.73 sqM); Potassium 4.1 mmol/L (3.5-5.1); Sodium 138 mmol/L (137-145); Total Bilirubin 0.8 mg/dL (0.2-1.3); Total Protein 7.1 g/dL (6.3-8.2)
[2024-07-24 21:03] LABS: Partial Thromboplastin Time 24.9 sec (22.0-30.0); Prothrombin Time 11.1 sec (10.0-12.5)
[2024-07-24 21:18] LABS: Appearance,Urine Cloudy (Clear); Bilirubin,Urine Negative (Negative); Blood,Urine Negative (Negative); Color,Urine Yellow; Glucose,Urine (UA) Negative (Negative); Ketones,Urine Trace (Negative); Leukocyte Esterase,Urine Negative (Negative); Mucus,Urine Many /hpf; Nitrite,Urine Negative (Negative); PH, Urine 5.5 (5.0-8.0); Protein,Urine Trace (Negative); RBC,Urine 1 /hpf (0-5); Specific Gravity,Urine 1.036 (1.001-1.035); Squamous Epithelial Cell,Urine 4 /hpf (0-4); WBC,Urine 4 /hpf (0-5)
[2024-07-24] MEDS: SODIUM CHLORIDE 0.9% 1,000 ML IV ONE (21:29)
--- NOTE | 2024-07-24 21:43 | US ---
EXAMINATION TYPE: Transabdominal DATE OF EXAM: 07/24/2024 8:53 PM COMPARISON: NONE CLINICAL INDICATION: Female, 19 years old with history of Vaginal bleeding, cramping; Patient states bleeding when wiping and abd cramping. Patient also states constipation for 2 weeks, took miralax TECHNIQUE: Transabdominal (TA) with grayscale and color Doppler imaging including first trimester pre gnancy. FINDINGS: EXAM MEASUREMENTS: GESTATIONAL AGE / DATING Physician Established: Not yet established Dates by LMP: (8 weeks/4 days) EDC: 03/01/2025 Dates by First Scan: No previous this is first scan Dates by Current Scan for: (8 weeks/2 days) EDC: 03/03/2025 MATERNAL ANATOMY Slightly limited due to overlying bowel gas Uterus: 8.7 x 5.6 x 7.2cm Right Ovary: 2.7 x 2.4 x 2.1cm Left Ovary: obscured by overlying bowel gas Post CDS / Adnexa: wnl Presence of free fluid: no Presence of corpus luteal cyst: not seen Presence of subchorionic bleed: no GESTATION / SURVEY CRL: 1.82 (8 weeks/2 days) Gestational Sac morphology: Normal Yolk Sac (normal less than 6mm): 4mm Heart Rate: 166 bpm Rhythm: Normal IUP: Viable IUP Date of LMP: LMP not given Beta HcG (if available): Not available at this time IMPRESSION: 1. Single live intrauterine with calculated ultrasound age of 8 weeks and 2 days by means o f crown rump length with an estimated date of delivery of 03/03/2025. 2. Left ovary was not visualized on exam. [facility], , 07/24/2024 9:41 PM
[2024-07-24 22:40] VITALS: BP 126/80; PULSE 74; RESP 17; TEMP 98.6
[2024-07-24 22:45] LABS: HCG,Quantitative Serum 96303.4 mIU/mL
== END 2024-07-24 22:41 | disposition home or self-care (01) ==
LOC: EC 19:21
DX: O20.9 Hemorrhage in early pregnancy, unspecified (principal); O99.331 Smoking (tobacco) complicating pregnancy, first trimester; F17.290 Nicotine dependence, other tobacco product, uncomplicated; Z88.0 Allergy status to penicillin; Z91.040 Latex allergy status; Z3A.08 8 weeks gestation of pregnancy
CPT/HCPCS: 36415; 76801; 80053; 81001; 81025; 84702; 85025; 85610; 85730; 86900; 86901; 96360; 99284

== ENCOUNTER 2024-08-13 11:21 | Emergency (ER) | payer OTHER ==
--- NOTE | 2024-08-13 11:59 | ED ---
Skin/Abscess/FB HPI - General Chief complaint: Skin/Abscess/Foreign Body Stated complaint: 11 weeks prg, abscess Time Seen by Provider: 08/13/24 11:58 Source: patient, RN notes reviewed Mode of arrival: ambulatory Limitations: no limitations - History of Present Illness Initial comments: 19-year-old approximately 11 weeks gestation female presenting to the ER for evaluation of left inner thigh abscess. She states she noticed this area on Sunday and has progressively enlarged over the past couple of days. She states it is painful to touch. Patient states her mother attempted to drain area yesterday with a needle and scalpel as her mom is a nurse. She states only blood was expressed at that time. Patient denies fevers. She denies any ab dominal pain, abdominal cramping, vaginal bleeding/discharge, nausea, vomiting or other complaints. Patient reports she is following up with Dr. Araiza and had an ultrasound completed yesterday confirming IUP. - Related Data Home Medications Medication Instructions Recorded Confirmed Montelukast [Singulair] 10 mg PO DAILY 08/18/22 11/27/23 Cholecalciferol (Vitamin D3) 50 mcg PO DAILY 11/27/23 11/27/23 [Vitamin D3 (50 Mcg = 2000 Iu)] Fluticasone Nasal [place] [Flonase 1 - 2 spray EA NOSTRIL BID PRN 11/27/23 11/27/23 Nasal [place]] Pantoprazole [Protonix] 40 mg PO DAILY 11/27/23 11/27/23 Previous Rx's Medication Instructions Recorded ARIPiprazole [Abilify] 2 mg PO HS 30 Days #30 tab 12/03/23 FLUoxetine HCL [PROzac] 10 mg PO DAILY 30 Days #30 cap 12/03/23 Nicotine 14Mg/24Hr Patch [Habitrol] 1 patch TRANSDERM DAILY patch 12/03/23 traZODone HCL [Desyrel] 50 mg PO HS PRN 30 Days #30 tab 12/03/23 Clindamycin [Cleocin] 450 mg PO Q6H 7 Days #63 capsule 08/13/24 Allergies Allergy/AdvReac Type Severity Reaction Status Date / Time Latex, Natural Rubber Allergy red & Verified 08/13/24 11:40 itchy skin, rash Penicillins Allergy Rash/Hives Verified 08/13/24 11:40 Review of Systems ROS Statement: Those systems with pertinent positive or pertinent negative responses have been documented in the HPI. ROS Other: All systems not noted in ROS Statement are negative. Past Medical History Past Medical History: Thyroid Disorder Additional Past Medical History / Comment(s): polycystic ovaries, migraines. SEASONAL ALLERGIES, carpel tunnel History of Any Multi-Drug Resistant Organisms: None Reported Past Surgical History: No Surgical Hx Reported Additional Past Surgical History / Comment(s): Left wrist surgery Additional Past Anesthesia/Blood Transfusion Reaction / Comment(s): NEVER HAD ANESTHESIA. Past Psychological History: ADD/ADHD, Anxiety, Depression Smoking Status: Vaper Past Alcohol Use History: None Reported, Occasional Past Drug Use History: None Reported, Marijuana - Past Family History Mother Family Medical History: No Reported History General Exam - General Exam Comments Initial Comments: Visual Physical Exam Vital signs reviewed General: Well-appearing, nontoxic, no acute distress. Head: Normocephalic, atraumatic Eyes: PERRLA, EOMI ENT: Airway patent Chest: Nonlabored breathing Skin: No visual rash, normal skin tone Neuro: Alert and oriented 3 Musculoskeletal: No gross abnormalities Limitations: no limitations General appearance: alert, in no apparent distress Respiratory exam: Present: normal lung sounds bilaterally. Absent: respiratory distress, wheezes, rales, rhonchi, stridor Cardiovascular Exam: Present: regular rate, normal rhythm, normal heart sounds. Absent: systolic murmur, diastolic murmur, rubs, gallop, clicks GI/Abdominal exam: Present: soft, normal bowel sounds. Absent: distended, tenderness, guarding, rebound, rigid Extremities exam: Present: normal inspection, full ROM, normal capillary refill. Absent: tenderness, pedal edema, joint swelling, calf tenderness Skin exam: Present: warm, dry, intact, other (2 x 2 area of fluctuance to left inner thigh. No purulent drainage present. Mildly tender to touch.) Course Vital Signs 08/13/24 08/13/24 11:37 15:26 Temperature 98.2 F 98.0 F Pulse Rate 93 80 Respiratory 16 18 Rate Blood Pressure 154/85 125/73 O2 Sat by Pulse 99 98 Oximetry Procedures - Incision & Drainage Consent Obtained: verbal consent Indication: abscess Site: buttock Size (cm): 2 Anesthetic Used: lidocaine 1%, without epi Amount (mLs): 2 I&D Cleaning Method: Chloroprep Sterile Field Used?: Yes Ultrasound used: No Needle Aspiration Performed?: Yes I&D Drainage Obtained: Blood Insertion of drain: No Patient Tolerated Procedure: well Medical Decision Making - Medical Decision Making I performed the quick note portion of this chart. Electronically signed by aYnci Myers PA-C Was pt. sent in by a medical professional or institution (ASHER Escobar, CLOTH EXAMINER, urgent care, hospital, or [facility]...) When possible be specific @ -No Did you speak to anyone other than the patient for history (EMS, parent, family, police, friend...)? What history was obtained from this source @ -No Did you review nursing and triage notes (agree or disagree)? Why? @ -I reviewed and agree with nursing and triage notes Were old charts reviewed (outside hosp., previous admission, EMS record, old EKG, old radiological studies, urgent care reports/EKG's, [facility] records)? Report findings @ -No old charts were reviewed Differential Diagnosis (chest pain, altered mental status, abdominal pain women, abdominal pain men, vaginal bleeding, weakness, fever, dyspnea, syncope, headache, dizziness, GI bleed, back pain, seizure, CVA, palpatations, mental health, musculoskeletal)? @ -Abscess, cyst, fistula, cellulitis... This list is not meant to be all- inclusive EKG interpreted by me (3pts min.). @ -None done X-rays interpreted by me (1pt min.). @ -None done CT interpreted by me (1pt min.). @ -None done U/S interpreted by me (1pt. min.). @ -None done What testing was considered but not performed or refused? (CT, X-rays, U/S, labs)? Why? @ -None What meds were considered but not given or refused? Why? @ -None Did you discuss the management of the patient with other professionals (professionals i.e. ASHER Escobar, CLOTH EXAMINER, lab, RT, psych nurse, social work job titles, associate professor of management, teacher, regulatory compliance officer, case specialist)? Give summary @ -No Was smoking cessation discussed for >3mins.? @ -No Was critical care preformed (if so, how long)? @ -No Were there social determinants of health that impacted care today? How? (Homelessness, low income, unemployed, alcoholism, drug addiction, transportation, low edu. Level, literacy, decrease access to med. care, group home, rehab)? @ -No Was there de-escalation of care discussed even if they declined (Discuss DNR or withdrawal of care, Hospice)? DNR status @ -No What co-morbidities impacted this encounter? (DM, HTN, Smoking, COPD, CAD, Cancer, CVA, ARF, Chemo, Hep., AIDS, mental health diagnosis, sleep apnea, morbid obesity)? @ - Was patient admitted / discharged? Hospital course, mention meds given and route, prescriptions, significant lab abnormalities, going to OR and other pertinent info. @ -Discharge. 19-year-old female presented to ER for evaluation of left inner thigh abscess. She states she commonly gets these. Upon examination there is a 2 cm x 2 cm fluctuant area to left inner thigh. No drainage present. Needle aspiration performed significant for bloody drainage. Patient will be started on Keflex for infection prophylaxis. Patient denying any abdominal pain/cramping, vaginal bleeding or discharge. Patient states she followed up with Dr. Araiza yesterday and had IUP identified on US. Instructed patient to follow-up closely with OB and PCP for further evaluation recheck. Strict return parameters discussed. Patient discharged in stable condition with follow-up to PCP. Patient verbally expressed understanding and agreement with care plan. Case discussed with ED attending, Dr. Doss. Undiagnosed new problem with uncertain prognosis? @ -No Drug Therapy requiring intensive monitoring for toxicity (Heparin, Nitro, Insulin, Cardizem)? @ -No Were any procedures done? @ -Yes, I&D Diagnosis/symptom? @ -Abscess Acute, or Chronic, or Acute on Chronic? @ -Acute Uncomplicated (without systemic symptoms) or Complicated (systemic symptoms)? @ -Uncomplicated Side effects of treatment? @ -No Exacerbation, Progression, or Severe Exacerbation? @ -No Poses a threat to life or bodily function? How? (Chest pain, [place], [place], pneumonia, PE, COPD, DKA, ARF, appy, cholecystitis, CVA, Diverticulitis, Homicidal, Suicidal, threat to staff... and all critical care pts) @ -No Disposition Clinical Impression: Abscess Disposition: HOME SELF-CARE Condition: Stable Instructions (If sedation given, give patient instructions): Abscess (ED) Additional Instructions: I recommend follow-up warm compresses 4 times daily. Take antibiotic as prescribed. Follow-up closely with PCP and OB for recheck. Return to the ER for any new or worsening concerns. Prescriptions: Clindamycin [Cleocin] 450 mg PO Q6H 7 Days #63 capsule Is patient prescribed a controlled substance at d/c from ED?: No Referrals: Ian Ruiz MD [Primary Care Provider] - 1-2 days Time of Disposition: 15:21
[2024-08-13] MEDS: LIDOCAINE 1% INJ 10MG/ML (20 ML MDV) SQ ONE (14:53)
[2024-08-13 15:29] VITALS: BP 125/73; PULSE 80; RESP 18; TEMP 98
== END 2024-08-13 15:29 | disposition home or self-care (01) ==
LOC: EC 11:21
DX: O99.711 Diseases of the skin and subcutaneous tissue complicating pregnancy, first trimester (principal); L02.416 Cutaneous abscess of left lower limb; F17.290 Nicotine dependence, other tobacco product, uncomplicated; Z88.0 Allergy status to penicillin; Z91.040 Latex allergy status; Z3A.11 11 weeks gestation of pregnancy
CPT/HCPCS: 99283; J2003

== ENCOUNTER 2024-11-09 12:00 | Emergency (ER) | payer OTHER ==
[2024-11-09 12:10] VITALS: BP 130/85
--- NOTE | 2024-11-09 12:35 | ED ---
Nausea/Vomiting/Diarrhea HPI - General Chief complaint: Nausea/Vomiting/Diarrhea Stated complaint: 24 wks preg nausea and vomiting Time Seen by Provider: 11/09/24 12:16 Source: patient, RN notes reviewed Mode of arrival: ambulatory Limitations: no limitations - History of Present Illness Initial comments: This is a 24-week 19-year-old female presenting for daily vomiting for the past several months. Patient states vomiting has been worsening with associated diaphoresis and dizziness for the past few days. Also endorses intermittent intermittent sharp/cramping right lower abdominal pain starting 6 weeks ago. Patient endorses use of Zofran with no relief. Endorses seeing Dr. Santo for care with an upcoming appointment this Sunday. Endorses prior pelvic ultrasound confirming intrauterine gestation. Denies fever, chills, urinary symptoms, vaginal bleeding/discharge. MD complaint: nausea, vomiting Onset/Timin -: month(s) Associated Abdominal Pain: Yes Location: periumbilical Radiation: none Severity scale (1-10): 6 Quality: cramping, sharp Consistency: intermittent Associated Symptoms: nausea/vomiting - Related Data Home Medications Medication Instructions Recorded Confirmed Montelukast [Singulair] 10 mg PO DAILY 08/18/22 11/27/23 Cholecalciferol (Vitamin D3) 50 mcg PO DAILY 11/27/23 11/27/23 [Vitamin D3 (50 Mcg = 2000 Iu)] Fluticasone Nasal [place] [Flonase 1 - 2 spray EA NOSTRIL BID PRN 11/27/23 11/27/23 Nasal [place]] Pantoprazole [Protonix] 40 mg PO DAILY 11/27/23 11/27/23 Previous Rx's Medication Instructions Recorded ARIPiprazole [Abilify] 2 mg PO HS 30 Days #30 tab 12/03/23 FLUoxetine HCL [PROzac] 10 mg PO DAILY 30 Days #30 cap 12/03/23 Nicotine 14Mg/24Hr Patch [Habitrol] 1 patch TRANSDERM DAILY patch 12/03/23 traZODone HCL [Desyrel] 50 mg PO HS PRN 30 Days #30 tab 12/03/23 Clindamycin [Cleocin] 450 mg PO Q6H 7 Days #63 capsule 08/13/24 Doxylamine Succinate/Vit B6 1 each PO Q12H #20 tab 04/06/25 [Bonjesta ER 20-20 mg Tablet] Metoclopramide [Reglan] 10 mg PO Q8H #15 tab 11/09/24 Allergies Allergy/AdvReac Type Severity Reaction Status Date / Time Latex, Natural Rubber Allergy red & Verified 11/09/24 12:10 itchy skin, rash Penicillins Allergy Rash/Hives Verified 11/09/24 12:10 Review of Systems ROS Statement: Those systems with pertinent positive or pertinent negative responses have been documented in the HPI. ROS Other: All systems not noted in ROS Statement are negative. Past Medical History Past Medical History: Thyroid Disorder Additional Past Medical History / Comment(s): polycystic ovaries, migraines. SEASONAL ALLERGIES, carpel tunnel History of Any Multi-Drug Resistant Organisms: None Reported Past Surgical History: No Surgical Hx Reported Additional Past Surgical History / Comment(s): Left wrist surgery Additional Past Anesthesia/Blood Transfusion Reaction / Comment(s): NEVER HAD ANESTHESIA. Past Psychological History: ADD/ADHD, Anxiety, Depression Smoking Status: Former smoker Past Alcohol Use History: None Reported, Occasional Past Drug Use History: None Reported, Marijuana - Past Family History Mother Family Medical History: No Reported History General Exam Limitations: no limitations General appearance: alert, in no apparent distress Head exam: Present: atraumatic, normocephalic, normal inspection Eye exam: Present: normal appearance, PERRL, EOMI. Absent: scleral icterus, conjunctival injection, periorbital swelling ENT exam: Present: normal exam, mucous membranes moist Neck exam: Present: normal inspection. Absent: tenderness, meningismus, lymphadenopathy Respiratory exam: Present: normal lung sounds bilaterally. Absent: respiratory distress, wheezes, rales, rhonchi, stridor, accessory muscle use, decreased breath sounds, prolonged expiratory Cardiovascular Exam: Present: regular rate, normal rhythm, normal heart sounds. Absent: systolic murmur, diastolic murmur, rubs, gallop, clicks GI/Abdominal exam: Present: soft, tenderness (Positive right periumbilical tenderness), normal bowel sounds, mass (Positive turgidity in right periumbilical region without obvious external mass), other (Negative RLQ, RUQ, suprapubic TTP. Negative Rovsing sign, Nicole sign). Absent: distended, guarding, rebound, rigid, pulsatile mass, hernia Extremities exam: Present: normal inspection, full ROM, normal capillary refill. Absent: tenderness, pedal edema, joint swelling, calf tenderness Back exam: Present: normal inspection Neurological exam: Present: alert, oriented X3, CN II-XII intact Psychiatric exam: Present: normal affect, normal mood Skin exam: Present: warm, dry, intact, normal color. Absent: rash Course Vital Signs 11/09/24 11/09/24 12:04 14:23 Temperature 97.9 F 98 F Pulse Rate 89 78 Respiratory 20 16 Rate Blood Pressure 130/85 130/85 O2 Sat by Pulse 99 98 Oximetry Medical Decision Making - Medical Decision Making Was pt. sent in by a medical professional or institution (, PA, INSTRUMENTAL MUSIC TEACHER, urgent care, hospital, or detention...) When possible be specific @ -No Did you speak to anyone other than the patient for history (EMS, parent, family, police, friend...)? What history was obtained from this source @ -No Did you review nursing and triage notes (agree or disagree)? Why? @ -I reviewed and agree with nursing and triage notes Were old charts reviewed (outside hosp., previous admission, EMS record, old EKG, old radiological studies, urgent care reports/EKG's, detention records)? Report findings @ -No old charts were reviewed Differential Diagnosis (chest pain, altered mental status, abdominal pain women, abdominal pain men, vaginal bleeding, weakness, fever, dyspnea, syncope, headache, dizziness, GI bleed, back pain, seizure, CVA, palpatations, mental health, musculoskeletal)? @ -Differential Abdominal Pain Women: Appendicitis, Cholecystitis, diverticulosis, ischemic bowel, pancreatitis, hepatitis, UTI, gastroenteritis, AAA, incarcerated hernia, bowel obstruction, constipation, inflammatory bowel, hepatitis, peptic ulcer disease, splenic infarction, perforated viscus, vulvitis, ovarian torsion, PID, kidney stone, placenta abruption, this is not meant to be an all-inclusive list EKG interpreted by me (3pts min.). @ -Sinus rhythm without ST deviation or T wave inversion. Ventricular rate 72 bpm, EJ 177 ms, QRS 93 ms, QTc 405 ms X-rays interpreted by me (1pt min.). @ -None done CT interpreted by me (1pt min.). @ -None done U/S interpreted by me (1pt. min.). @ -Ultrasound shows possible 4 by 3 x 3 x 2 cm right uterine fundal fibroid. Otherwise no concerning findings. What testing was considered but not performed or refused? (CT, X-rays, U/S, labs)? Why? @ -None What meds were considered but not given or refused? Why? @ -None Did you discuss the management of the patient with other professionals (professionals i.e. Dr., PA, INSTRUMENTAL MUSIC TEACHER, lab, RT, psych nurse, social work nurse, projection printer, teacher, regulatory compliance officer, welfare case worker)? Give summary @ -No Was smoking cessation discussed for >3mins.? @ -No Was critical care preformed (if so, how long)? @ -No Were there social determinants of health that impacted care today? How? (Homelessness, low income, unemployed, alcoholism, drug addiction, transporta tion, low edu. Level, literacy, decrease access to med. care, nursing home, rehab)? @ -No Was there de-escalation of care discussed even if they declined (Discuss DNR or withdrawal of care, Hospice)? DNR status @ -No What co-morbidities impacted this encounter? (DM, HTN, Smoking, COPD, CAD, Cancer, CVA, ARF, Chemo, Hep., AIDS, mental health diagnosis, sleep apnea, morbid obesity)? @ -None Was patient admitted / discharged? Hospital course, mention meds given and route, prescriptions, significant lab abnormalities, going to OR and other pertinent info. @ -Lab work shows mild leukocytosis 10.9 with left shift and quantitative hCG 6754. Patient is A+ blood type. Patient initially provided p.o. Tylenol and IV normal saline, Reglan, pyridoxine and Benadryl. Ultrasound shows possible 4 by 3 x 3 x 2 cm right uterine fundal fibroid. Otherwise no concerning findings. Patient notes improvement in nausea symptoms. Bonjesta and Reglan sent to patient's pharmacy. Advised follow-up with OB for ongoing management of nausea/vomiting and RLQ pain. Discussed patient with Dr. Booker. Undiagnosed new problem with uncertain prognosis? @ -No Drug Therapy requiring intensive monitoring for toxicity (Heparin, Nitro, Insulin, Cardizem)? @ -No Were any procedures done? @ -No Diagnosis/symptom? @ - associated nausea, uterine fibroid Acute, or Chronic, or Acute on Chronic? @ -Acute on chronic Uncomplicated (without systemic symptoms) or Complicated (systemic symptoms)? @ -Complicated Side effects of treatment? @ -No Exacerbation, Progression, or Severe Exacerbation? @ -No Poses a threat to life or bodily function? How? (Chest pain, [place], [place], pneumonia, PE, COPD, DKA, ARF, appy, cholecystitis, CVA, Diverticulitis, Homicidal, Suicidal, threat to staff... and all critical care pts) @ -No - Lab Data Result diagrams: 11/09/24 12:35 11/09/24 12:35 Lab Results 11/09/24 11/09/24 11/09/24 Range/Units 12:35 12:35 12:35 WBC 10.9 H (3.8-10.6) k/uL RBC 4.32 (3.80-5.40) m/uL Hgb 13.2 (11.4-16.0) gm/dL Hct 40.0 (34.0-46.0) % MCV 92.6 (80.0-100.0) fL MCH 30.6 (25.0-35.0) pg MCHC 33.1 (31.0-37.0) g/dL RDW 12.9 (11.5-15.5) % Plt Count 266 (150-450) k/uL MPV 8.3 Neutrophils % 76 % Lymphocytes % 17 % Monocytes % 3 % Eosinophils % 1 % Basophils % 1 % Neutrophils # 8.3 H (1.3-7.7) k/uL Lymphocytes # 1.8 (1.0-4.8) k/uL Monocytes # 0.4 (0-1.0) k/uL Eosinophils # 0.2 (0-0.7) k/uL Basophils # 0.1 (0-0.2) k/uL Sodium 135 L (137-145) mmol/L Potassium 4.7 (3.5-5.1) mmol/L Chloride 106 (98-107) mmol/L Carbon Dioxide 24 (22-30) mmol/L Anion Gap 5 mmol/L BUN 8 (7-17) mg/dL Creatinine 0.65 (0.52-1.04) mg/dL Est GFR (CKD-EPI)AfAm >90 (>60 ml/min/1.73 sqM) Est GFR (CKD-EPI)NonAf >90 (>60 ml/min/1.73 sqM) Glucose 87 (74-99) mg/dL Calcium 9.3 (8.4-10.2) mg/dL Total Bilirubin 0.7 (0.2-1.3) mg/dL AST 15 (14-36) U/L ALT 13 (4-34) U/L Alkaline Phosphatase 57 (38-126) U/L Total Protein 6.2 L (6.3-8.2) g/dL Albumin 3.5 (3.5-5.0) g/dL HCG, Quant 6754.0 mIU/mL Blood Type A Positive Blood Type Recheck A Pos Bld Type Recheck Status No Disposition Clinical Impression: Uterine fibroid, Nausea and vomiting during Disposition: HOME SELF-CARE Condition: Good Instructions (If sedation given, give patient instructions): Nausea and Vomiting in (ED) Additional Instructions: Phyllis tea/garret for nausea. Attempt control with doxylamine/B6 before resorting to Reglan. Follow-up with [facility] regarding possible uterine fibroid discovery Prescriptions: Doxylamine Succinate/Vit B6 [Bonjesta ER 20-20 mg Tablet] 1 each PO Q12H #20 tab Metoclopramide [Reglan] 10 mg PO Q8H #15 tab Is patient prescribed a controlled substance at d/c from ED?: No Referrals: Ian Ruiz MD [Primary Care Provider] - 1-2 days Time of Disposition: 13:45
[2024-11-09] MEDS: SODIUM CHLORIDE 0.9% 1,000 ML IV STA (12:36)
[2024-11-09 12:45] LABS: Basophils # (A) 0.1 k/uL (0-0.2); Basophils % (A) 1 %; Eosinophils # (A) 0.2 k/uL (0-0.7); Eosinophils % (A) 1 %; HGB 13.2 gm/dL (11.4-16.0); Lymphocytes # (A) 1.8 k/uL (1.0-4.8); Lymphocytes % (A) 17 %; MCH 30.6 pg (25.0-35.0); MCHC 33.1 g/dL (31.0-37.0); MCV 92.6 fL (80.0-100.0); Mean Platelet Volume 8.3; Monocytes # (A) 0.4 k/uL (0-1.0); Monocytes % (A) 3 %; Neutrophils # (A) 8.3 k/uL (1.3-7.7); Neutrophils % (A) 76 %; Platelet Count 266 k/uL (150-450); RBC 4.32 m/uL (3.80-5.40); RDW 12.9 % (11.5-15.5); WBC 10.9 k/uL (3.8-10.6)
[2024-11-09] MEDS: PYRIDOXINE 100 MG/ML 1 ML VIAL IVP SCH (12:46)
[2024-11-09] MEDS: ACETAMINOPHEN TAB 500 MG TAB PO STA (12:46)
[2024-11-09] MEDS: diphenhydrAMINE 50 MG/ML 1 ML VIAL IVP STA (12:46)
[2024-11-09] MEDS: METOCLOPRAMIDE 5 MG/ML 2 ML VIAL IVP STA (12:52)
[2024-11-09 13:01] LABS: ALT 13 U/L (4-34); AST 15 U/L (14-36); African American GFR (CKD) >90 (>60 ml/min/1.73 sqM); Albumin 3.5 g/dL (3.5-5.0); Alkaline Phosphatase 57 U/L (38-126); Anion Gap 5 mmol/L; Blood Urea Nitrogen 8 mg/dL (7-17); Calcium 9.3 mg/dL (8.4-10.2); Carbon Dioxide 24 mmol/L (22-30); Chloride 106 mmol/L (98-107); Glucose 87 mg/dL (74-99); Non-African American GFR(CKD) >90 (>60 ml/min/1.73 sqM); Potassium 4.7 mmol/L (3.5-5.1); Sodium 135 mmol/L (137-145); Total Bilirubin 0.7 mg/dL (0.2-1.3); Total Protein 6.2 g/dL (6.3-8.2)
--- NOTE | 2024-11-09 13:26 | US ---
EXAMINATION TYPE: US abdomen limited DATE OF EXAM: 11/09/2024 COMPARISON: NONE CLINICAL INDICATION: Female, 19 years old with history of Right periumbilical pain/tenderness x6 week s; Avery lump; Patient is 24 weeks TECHNIQUE: FINDINGS: RLQ scanned Incidental - ? Fibroid fundal right uterus = 4.3 x 3.2 x 3.2 cm area did not change throughout durati on of scan Right ovary visualized and appears WNL. Fetus is not evaluated during this exam. IMPRESSION: 1. No discrete abnormality to correlate with the palpable findings. 2. There is a possible 3 cm uterine fibroid present. [facility], , 11/09/2024 1:24 PM
[2024-11-09 14:25] VITALS: PULSE 78; RESP 16; TEMP 98
== END 2024-11-09 14:23 | disposition home or self-care (01) ==
LOC: EC 12:00
DX: O21.2 Late vomiting of pregnancy (principal); O34.12 Maternal care for benign tumor of corpus uteri, second trimester; D25.9 Leiomyoma of uterus, unspecified; Z87.891 Personal history of nicotine dependence; Z91.040 Latex allergy status; Z88.0 Allergy status to penicillin; Z3A.24 24 weeks gestation of pregnancy
CPT/HCPCS: 36415; 93005; 86900; 86901; 80053; 85025; 84702; 76705; 99284; 96374; 96375 ×2; 96361; J1200; J3415; J2765

== ENCOUNTER 2024-11-15 19:26 | Emergency (ER) | payer OTHER ==
[2024-11-15 19:30] VITALS: RESP 18
[2024-11-15] MEDS: SODIUM CHLORIDE 0.9% 1,000 ML IV SCH (19:43)
[2024-11-15] MEDS: FAMOTIDINE 20 MG/2 ML VIAL IV STA (19:44)
[2024-11-15] MEDS: diphenhydrAMINE 50 MG/ML 1 ML VIAL IVP STA (19:44)
--- NOTE | 2024-11-15 19:48 | ED ---
Dizziness HPI - General Chief Complaint: Dizziness Stated Complaint: 25 wks preg- allergic reaction Time Seen by Provider: 11/15/24 19:31 Source: patient, RN notes reviewed Mode of arrival: ambulatory Limitations: no limitations - History of Present Illness Initial Comments: This is a 19-year-old female who presents to the emergency department for dizzin ess and concerns of an allergic reaction. Patient was prescribed Keflex for concerns of an infection on her foot and inner thigh earlier today. States that she took the first dose of this around 6:30pm and started to feel very dizzy like she was going to pass out 10 to 20 minutes afterwards. She is allergic to penicillins and was told that there was a possibility of reaction to the Keflex as well. States that she has cellulitis to the top of her left foot and a large abscess on the left inner thigh. She first noticed the abscess in August. They tried to drain it but nothing was able to come out of it. They had started her on clindamycin and it resolved. States that it then returned and is now much larger. She has gotten some material to drain from this. Patient is also 25 weeks . Denies any abdominal pain or vaginal bleeding. MD Complaint: dizziness - Related Data Home Medications Medication Instructions Recorded Confirmed Montelukast [Singulair] 10 mg PO DAILY 08/18/22 11/27/23 Cholecalciferol (Vitamin D3) 50 mcg PO DAILY 11/27/23 11/27/23 [Vitamin D3 (50 Mcg = 2000 Iu)] Fluticasone Nasal [place] [Flonase 1 - 2 spray EA NOSTRIL BID PRN 11/27/23 11/27/23 Nasal [place]] Pantoprazole [Protonix] 40 mg PO DAILY 11/27/23 11/27/23 Previous Rx's Medication Instructions Recorded ARIPiprazole [Abilify] 2 mg PO HS 30 Days #30 tab 12/03/23 FLUoxetine HCL [PROzac] 10 mg PO DAILY 30 Days #30 cap 12/03/23 Nicotine 14Mg/24Hr Patch [Habitrol] 1 patch TRANSDERM DAILY patch 12/03/23 traZODone HCL [Desyrel] 50 mg PO HS PRN 30 Days #30 tab 12/03/23 Doxylamine Succinate/Vit B6 1 each PO Q12H #20 tab 11/09/24 [Bonjesta ER 20-20 mg Tablet] Metoclopramide [Reglan] 10 mg PO Q8H #15 tab 11/09/24 Clindamycin [Cleocin] 450 mg PO Q6H 7 Days #63 capsule 11/15/24 Nitrofurantoin Monohyd/M-Cryst 100 mg PO Q12HR 5 Days #10 cap 11/15/24 [Macrobid] Allergies Allergy/AdvReac Type Severity Reaction Status Date / Time Latex, Natural Rubber Allergy red & Verified 11/15/24 19:30 itchy skin, rash Penicillins Allergy Rash/Hives Verified 11/15/24 19:30 Review of Systems ROS Statement: Those systems with pertinent positive or pertinent negative responses have been documented in the HPI. ROS Other: All systems not noted in ROS Statement are negative. Past Medical History Past Medical History: Thyroid Disorder Additional Past Medical History / Comment(s): polycystic ovaries, migraines. SEASONAL ALLERGIES, carpel tunnel History of Any Multi-Drug Resistant Organisms: None Reported Past Surgical History: No Surgical Hx Reported Additional Past Surgical History / Comment(s): Left wrist surgery Additional Past Anesthesia/Blood Transfusion Reaction / Comment(s): NEVER HAD ANESTHESIA. Past Psychological History: ADD/ADHD, Anxiety, Depression Smoking Status: Former smoker Past Alcohol Use History: None Reported, Occasional Past Drug Use History: None Reported, Marijuana - Past Family History Mother Family Medical History: No Reported History General Exam Limitations: no limitations General appearance: alert, in no apparent distress Head exam: Present: atraumatic, normocephalic, normal inspection Respiratory exam: Present: normal lung sounds bilaterally. Absent: respiratory distress, wheezes, rales, rhonchi, stridor Cardiovascular Exam: Present: regular rate, normal rhythm Neurological exam: Present: alert, oriented X3, CN II-XII intact Psychiatric exam: Present: normal affect, normal mood Skin exam: Present: other (Superficial abrasion to the top of the left foot. Appears to be healing appropriately. Large abscess in the left inner thigh with active purulent drainage.) Course Vital Signs 11/15/24 11/15/24 19:27 22:14 Temperature 98.3 F 98.1 F Pulse Rate 102 H 99 Respiratory 18 18 Rate Blood Pressure 129/81 124/80 O2 Sat by Pulse 98 100 Oximetry Procedures - Incision & Drainage Consent Obtained: verbal consent Indication: Abscess Site: lower extremity Size (cm): 4 Anesthetic Used: lidocaine 1% Amount (mLs): 3 I&D Cleaning Method: Alcohol Wipe Sterile Field Used?: Yes Scalpel Used: #11 I&D Drainage Obtained: Pus, Blood Culture Obtained?: Yes Medical Decision Making - Medical Decision Making This is a 19-year-old female who presents to the emergency department for dizziness and concerns of an abscess. Was pt. sent in by a medical professional or institution? @ -No Did you speak to anyone other than the patient for history? @ -No Did you review nursing and triage notes? @ -Yes, and I agree, it is accurate with regards to the patient's symptoms. Were old charts reviewed? @ -No Differential Diagnosis? @ -Differential Dizziness: Benign paroxysmal positional Vertigo, Meniere's disease, otitis media, acoustic neuroma, vertebrobasilar insufficiency, cerebellar stroke, encephalitis, hypovolemic, arrhythmia, coronary artery syndrome, anemia, this is not meant to be an all-inclusive list EKG interpreted by me (3pts min.)? @ -EKG interpreted by me demonstrating the following: Sinus rhythm. Ventricular rate 90 bpm, [place] interval 181 ms, QRS duration 92 ms, QTc 405 ms. X-rays interpreted by me (1pt min.)? @ -Not obtained CT interpreted by me (1pt min.)? @ -Not obtained U/S interpreted by me (1pt. min.)? @ -Not obtained What testing was considered but not performed? (CT, X-rays, U/S, labs)? Why? @ -None What meds were considered but not given? Why? @ -None Did you discuss the management of the patient with other professionals? @ -No Did you reconcile home meds? @ -No Was smoking cessation discussed for >3mins.? @ -No Was critical care preformed (if so, how long)? @ -No Were there social determinants of health that impacted care today? How? (Homelessness, low income, unemployed, alcoholism, drug addiction, trans portation, low edu. Level, literacy, decrease access to med. care, nursing home, rehab)? @ -No Was there de-escalation of care discussed even if they declined? (Discuss DNR or withdrawal of care, Hospice)? @ -No What co-morbidities impacted this encounter? (DM, HTN, Smoking, COPD, CAD, Cancer, CVA, Hep., AIDS, mental health diagnosis, sleep apnea, morbid obesity)? @ - Was patient admitted / discharged? @ -Discharged. Lab work demonstrates mild leukocytosis and is otherwise unremarkable. Urinalysis consistent with infection and urine was sent for culture. Patient treated with IV fluids, Benadryl, and famotidine, for possible mild reaction to the Keflex. She did have improvement in symptoms afterwards. The area on the top of her foot did not appear infected. It appeared to be healing just fine. However, she had a very large abscess to the left inner thigh. This was actively draining. Incision and drainage performed. Some purulent material was expressed, however it was otherwise largely just blood. The abscess appeared very deep and I advised that she needs to follow-up with general surgery to have it properly removed. Aerobic and anaerobic wound cultures were obtained. Given that she tolerated clindamycin last time and it seemed to work well, this was again prescribed. Macrobid prescribed as well for the UTI. Mother/baby nurse came to auscultate tones which were within normal limits. Information for follow-up with general surgery was provided. Patient discharged home in stable condition. Case discussed with ED attending Dr. Gatica. Return precautions reviewed in depth, the patient is instructed to return to the emergency department with any new, worsening, or concerning symptoms. Patient verbalized understanding. Undiagnosed new problem with uncertain prognosis? @ -None Drug Therapy requiring intensive monitoring for toxicity (Heparin, Nitro, Insulin, Cardizem)? @ -None Were any procedures done? @ -Incision and drainage Diagnosis/symptom? @ -Dizziness, allergic reaction, abscess, UTI Acute, or Chronic, or Acute on Chronic? @ -Acute Uncomplicated (without systemic symptoms) or Complicated (systemic symptoms)? @ -Uncomplicated Side effects of treatment? @ -None Exacerbation, Progression, or Severe Exacerbation] @ -Not applicable Poses a threat to life or bodily function? @ -No - Lab Data Result diagrams: 11/15/24 19:47 11/15/24 19:47 Lab Results 11/15/24 11/15/24 11/15/24 Range/Units 19:47 19:47 19:47 WBC 12.81 H (4.50-10.00) 10*3/uL RBC 4.03 L (4.10-5.20) 10*6/uL Hgb 12.9 (12.0-15.0) g/dL Hct 35.9 L (37.2-46.3) % MCV 89.1 (80.0-97.0) fL MCH 32.0 (27.0-32.0) pg MCHC 35.9 (32.0-37.0) g/dL Plt Count 303 (140-440) 10*3/uL MPV 10.5 (9.5-12.2) fL Immature Gran % (Auto) 0.3 % Neutrophils % 70.7 % Lymphocytes % 21.3 % Monocytes % 5.5 % Eosinophils % 1.7 % Basophils % 0.5 % Immature Gran # 0.04 (0.00-0.04) 10*3/uL Neutrophils # 9.05 H (1.80-7.70) 10*3/uL Lymphocytes # 2.73 (0.90-5.00) 10*3/uL Monocytes # 0.71 (0.20-1.00) 10*3/uL Eosinophils # 0.22 (0.04-0.35) 10*3/uL Basophils # 0.06 (0.00-0.10) 10*3/uL Sodium 134 L (137-145) mmol/L Potassium 4.0 (3.5-5.1) mmol/L Chloride 106 (98-107) mmol/L Carbon Dioxide 20 L (22-30) mmol/L Anion Gap 8 mmol/L BUN 6 L (7-17) mg/dL Creatinine 0.53 (0.52-1.04) mg/dL Est GFR (CKD-EPI)AfAm >90 (>60 ml/min/1.73 sqM) Est GFR (CKD-EPI)NonAf >90 (>60 ml/min/1.73 sqM) Glucose 85 (74-99) mg/dL Plasma Lactic Acid Jer[place] 0.8 (0.7-2.0) mmol/L Calcium 9.3 (8.4-10.2) mg/dL Total Bilirubin 1.1 (0.2-1.3) mg/dL AST 18 (14-36) U/L ALT 14 (4-34) U/L Alkaline Phosphatase 61 (38-126) U/L C-Reactive Protein 2.9 H (<1.0) mg/dL Total Protein 6.7 (6.3-8.2) g/dL Albumin 3.9 (3.5-5.0) g/dL Urine Color Urine Appearance (Clear) Urine pH (5.0-8.0) Ur Specific [place] (1.001-1.035) Urine Protein (Negative) Urine Glucose (UA) (Negative) Urine Ketones (Negative) Urine Blood (Negative) Urine Nitrite (Negative) Urine Bilirubin (Negative) Urine Urobilinogen (<2.0) mg/dL Ur Leukocyte Esterase (Negative) Urine RBC (0-5) /hpf Urine WBC (0-5) /hpf Ur Squamous Epith Cells (0-4) /hpf Urine Bacteria (None) /hpf Hyaline Casts (0-2) /lpf Urine Mucus (None) /hpf 11/15/24 Range/Units 20:37 WBC (4.50-10.00) 10*3/uL RBC (4.10-5.20) 10*6/uL Hgb (12.0-15.0) g/dL Hct (37.2-46.3) % MCV (80.0-97.0) fL MCH (27.0-32.0) pg MCHC (32.0-37.0) g/dL Plt Count (140-440) 10*3/uL MPV (9.5-12.2) fL Immature Gran % (Auto) % Neutrophils % % Lymphocytes % % Monocytes % % Eosinophils % % Basophils % % Immature Gran # (0.00-0.04) 10*3/uL Neutrophils # (1.80-7.70) 10*3/uL Lymphocytes # (0.90-5.00) 10*3/uL Monocytes # (0.20-1.00) 10*3/uL Eosinophils # (0.04-0.35) 10*3/uL Basophils # (0.00-0.10) 10*3/uL Sodium (137-145) mmol/L Potassium (3.5-5.1) mmol/L Chloride (98-107) mmol/L Carbon Dioxide (22-30) mmol/L Anion Gap mmol/L BUN (7-17) mg/dL Creatinine (0.52-1.04) mg/dL Est GFR (CKD-EPI)AfAm (>60 ml/min/1.73 sqM) Est GFR (CKD-EPI)NonAf (>60 ml/min/1.73 sqM) Glucose (74-99) mg/dL Plasma Lactic Acid [place] (0.7-2.0) mmol/L Calcium (8.4-10.2) mg/dL Total Bilirubin (0.2-1.3) mg/dL AST (14-36) U/L ALT (4-34) U/L Alkaline Phosphatase (38-126) U/L C-Reactive Protein (<1.0) mg/dL Total Protein (6.3-8.2) g/dL Albumin (3.5-5.0) g/dL Urine Color Light Yellow Urine Appearance Cloudy H (Clear) Urine pH 6.5 (5.0-8.0) Ur Specific [place] 1.013 (1.001-1.035) Urine Protein Negative (Negative) Urine Glucose (UA) Negative (Negative) Urine Ketones 1+ H (Negative) Urine Blood Negative (Negative) Urine Nitrite Positive H (Negative) Urine Bilirubin Negative (Negative) Urine Urobilinogen <2.0 (<2.0) mg/dL Ur Leukocyte Esterase Large H (Negative) Urine RBC 2 (0-5) /hpf Urine WBC 15 H (0-5) /hpf Ur Squamous Epith Cells 23 H (0-4) /hpf Urine Bacteria Rare H (None) /hpf Hyaline Casts 1 (0-2) /lpf Urine Mucus Occasional H (None) /hpf Disposition Clinical Impression: Allergic reaction, UTI (urinary tract infection), Abscess of left leg Disposition: HOME SELF-CARE Instructions (If sedation given, give patient instructions): Abscess Incision and Drainage (ED), Urinary Tract Infection in (ED) Additional Instructions: Return to the emergency department with any new, worsening, or concerning sympt oms. Take the clindamycin as prescribed for 7 days and the Macrobid as prescribed for 5 days. Continue to apply warm compresses to the abscess. You can reach out to the general surgery offices listed below. Let them know that you were seen in the emergency department and they will schedule you for a follow-up appointment. Follow up with your primary care provider in 1-2 days. Prescriptions: Clindamycin [Cleocin] 450 mg PO Q6H 7 Days #63 capsule Nitrofurantoin Monohyd/M-Cryst [Macrobid] 100 mg PO Q12HR 5 Days #10 cap Is patient prescribed a controlled substance at d/c from ED?: No Referrals: Ian Ruiz MD [Primary Care Provider] - 1-2 days Lolly Santamaria MD [STAFF PHYSICIAN] - 1-2 days Cash Tejeda MD [STAFF PHYSICIAN] - 1-2 days Miky Barber DO [Doctor of Osteopathic Medicine] - 1-2 days Time of Disposition: 21:52
[2024-11-15 19:57] LABS: Basophils # (A) 0.06 10*3/uL (0.00-0.10); Basophils % (A) 0.5 %; Eosinophils # (A) 0.22 10*3/uL (0.04-0.35); Eosinophils % (A) 1.7 %; HCT 35.9 % (37.2-46.3); HGB 12.9 g/dL (12.0-15.0); Lymphocytes # (A) 2.73 10*3/uL (0.90-5.00); Lymphocytes % (A) 21.3 %; MCHC 35.9 g/dL (32.0-37.0); MCV 89.1 fL (80.0-97.0); Mean Platelet Volume 10.5 fL (9.5-12.2); Monocytes # (A) 0.71 10*3/uL (0.20-1.00); Monocytes % (A) 5.5 %; Neutrophils # (A) 9.05 10*3/uL (1.80-7.70); Neutrophils % (A) 70.7 %; Platelet Count 303 10*3/uL (140-440); RBC 4.03 10*6/uL (4.10-5.20); RDW 12.2 % (11.5-14.5); WBC 12.81 10*3/uL (4.50-10.00)
[2024-11-15 20:28] LABS: ALT 14 U/L (4-34); AST 18 U/L (14-36); African American GFR (CKD) >90 (>60 ml/min/1.73 sqM); Albumin 3.9 g/dL (3.5-5.0); Alkaline Phosphatase 61 U/L (38-126); Anion Gap 8 mmol/L; Blood Urea Nitrogen 6 mg/dL (7-17); C Reactive Protein 2.9 mg/dL (<1.0); Calcium 9.3 mg/dL (8.4-10.2); Carbon Dioxide 20 mmol/L (22-30); Chloride 106 mmol/L (98-107); Glucose 85 mg/dL (74-99); Non-African American GFR(CKD) >90 (>60 ml/min/1.73 sqM); Sodium 134 mmol/L (137-145); Total Bilirubin 1.1 mg/dL (0.2-1.3); Total Protein 6.7 g/dL (6.3-8.2)
[2024-11-15] MEDS: ONDANSETRON 4 MG/2 ML VIAL IVP STA (20:34)
[2024-11-15] MEDS: LIDOCAINE 1% INJ 10MG/ML (20 ML MDV) SQ ONE (20:35)
[2024-11-15 21:00] LABS: Appearance,Urine Cloudy (Clear); Bacteria,Urine Rare /hpf; Bilirubin,Urine Negative (Negative); Blood,Urine Negative (Negative); Color,Urine Light Yellow; Glucose,Urine (UA) Negative (Negative); Hyaline Casts,Urine 1 /lpf (0-2); Ketones,Urine 1+ (Negative); Leukocyte Esterase,Urine Large (Negative); Mucus,Urine Occasional /hpf; Nitrite,Urine Positive (Negative); PH, Urine 6.5 (5.0-8.0); Protein,Urine Negative (Negative); RBC,Urine 2 /hpf (0-5); Specific Gravity,Urine 1.013 (1.001-1.035); Squamous Epithelial Cell,Urine 23 /hpf (0-4); Urobilinogen,Urine <2.0 mg/dL (<2.0); WBC,Urine 15 /hpf (0-5)
[2024-11-15] MEDS: ACETAMINOPHEN TAB 500 MG TAB PO STA (21:54)
[2024-11-15] MEDS: NITROFURANTOIN MONOHYD/M-CRYST 100 MG CAP PO STA (21:54)
[2024-11-15] MEDS: CLINDAMYCIN 150 MG CAP PO STA (21:54)
[2024-11-15] MEDS: ONDANSETRON 4 MG ODT STARTER PACK 2 TAB BTL PO STA (22:11)
[2024-11-15 22:15] VITALS: BP 124/80; PULSE 99; TEMP 98.1
== END 2024-11-15 22:15 | disposition home or self-care (01) ==
LOC: EC 19:26
DX: O99.712 Diseases of the skin and subcutaneous tissue complicating pregnancy, second trimester (principal); L02.416 Cutaneous abscess of left lower limb; O9A.212 Injury, poisoning and certain other consequences of external causes complicating pregnancy, second trimester; S90.812A Abrasion, left foot, initial encounter; T78.40XA Allergy, unspecified, initial encounter; O23.42 Unspecified infection of urinary tract in pregnancy, second trimester; N39.0 Urinary tract infection, site not specified; O26.892 Other specified pregnancy related conditions, second trimester; R42 Dizziness and giddiness; O99.112 Other diseases of the blood and blood-forming organs and certain disorders involving the immune mechanism complicating pregnancy, second trimester; D72.829 Elevated white blood cell count, unspecified; Z88.0 Allergy status to penicillin; Z91.040 Latex allergy status; Z87.891 Personal history of nicotine dependence; Z3A.25 25 weeks gestation of pregnancy; X58.XXXA Exposure to other specified factors, initial encounter
CPT/HCPCS: 10060 ×2; 99284 ×2; 96374 ×2; 96375 ×3; 96361 ×2; 36415; 93005; 80053; 83605; 85025; 86140; 81001; 87070; 87086; 87205; 87075; J1200; J2405; J2003; S0119; J1308

== ENCOUNTER 2025-01-04 06:10 | Outpatient (CLI) | payer OTHER ==
[2025-01-04] MEDS: LACTATED RINGERS 1,000 ML IV ONE (07:10)
[2025-01-04] MEDS: ONDANSETRON 4 MG/2 ML VIAL IVP STA (07:12)
[2025-01-04] MEDS: FAMOTIDINE 20 MG/2 ML VIAL IV STA (07:15)
[2025-01-04 07:16] LABS: Basophils # (A) 0.06 10*3/uL (0.00-0.10); Basophils % (A) 0.5 %; Eosinophils # (A) 0.19 10*3/uL (0.04-0.35); Eosinophils % (A) 1.5 %; HCT 36.5 % (37.2-46.3); HGB 12.5 g/dL (12.0-15.0); Lymphocytes # (A) 2.17 10*3/uL (0.90-5.00); Lymphocytes % (A) 17.6 %; MCH 30.6 pg (27.0-32.0); MCHC 34.2 g/dL (32.0-37.0); MCV 89.5 fL (80.0-97.0); Mean Platelet Volume 10.9 fL (9.5-12.2); Monocytes # (A) 0.84 10*3/uL (0.20-1.00); Monocytes % (A) 6.8 %; Platelet Count 250 10*3/uL (140-440); RBC 4.08 10*6/uL (4.10-5.20); RDW 12.6 % (11.5-14.5); WBC 12.34 10*3/uL (4.50-10.00)
[2025-01-04 07:30] LABS: ALT 14 U/L (4-34); AST 14 U/L (14-36); African American GFR (CKD) >90 (>60 ml/min/1.73 sqM); Blood Urea Nitrogen 9 mg/dL (7-17); LDH 153 U/L (120-246); Non-African American GFR(CKD) >90 (>60 ml/min/1.73 sqM); Uric Acid 3.5 mg/dL (3.7-7.4)
[2025-01-04 07:37] LABS: Appearance,Urine Cloudy (Clear); Bacteria,Urine Rare /hpf; Bilirubin,Urine Negative (Negative); Blood,Urine Negative (Negative); Color,Urine Yellow; Glucose,Urine (UA) Negative (Negative); Ketones,Urine Negative (Negative); Leukocyte Esterase,Urine Small (Negative); Mucus,Urine Rare /hpf; Nitrite,Urine Negative (Negative); Protein,Urine Negative (Negative); RBC,Urine 1 /hpf (0-5); Specific Gravity,Urine 1.017 (1.001-1.035); Squamous Epithelial Cell,Urine 6 /hpf (0-4); Urobilinogen,Urine <2.0 mg/dL (<2.0); WBC,Urine 6 /hpf (0-5)
[2025-01-04 08:01] LABS: Creatinine,Urine Random 138.4 mg/dL; Protein/Creatinine Ratio,Urine 0.079
[2025-01-04 08:04] LABS: Amphetamine Screen,Urine Not Detected (NotDetected); Barbiturate Screen,Urine Not Detected (NotDetected); Benzodiazepines Screen,Urine Not Detected (NotDetected); Cocaine Screen,Urine Not Detected (NotDetected); Methadone Screen, Urine Not Detected (NotDetected); Opiate Screen,Urine Not Detected (NotDetected); Oxycodone Screen, Urine Not Detected (NotDetected); Phencyclidine Screen,Urine Not Detected (NotDetected); Tricyclic Antidepressant,Urine Not Detected (NotDetected); Urn Cannabinoid Scrn Detected (NotDetected)
[2025-01-04 09:29] VITALS: BP 140/73; PULSE 77; RESP 14; TEMP 96.4
--- NOTE | 2025-01-24 15:05 | P.MSEPDOC ---
Presenting Problems - Arrival Data Date of Arrival on Unit: 01/04/25 Time of Arrival on Unit: 06:10 Mode of Transport: Ambulatory - Complaint OB-Reason for Admission/Chief Complaint: Hyperemesis Medical History - Information : 1 Para: 0 Term: 0 : 0 Abortions: Spontaneous or Elective: 0 Number of Living Children: 0 - Gestational Age Gestational Age by MAURISIO (wks/days): 32 Weeks and 0 Days Review of Systems - Review of Systems Constitutional: No problems Breast: No problems ENT: No problems Cardiovascular: No problems Respiratory: No problems Gastrointestinal: No problems Genitourinary: No problems Musculoskeletal: No problems Neurological: No problems Skin: No problems Vital Signs - Temperature Temperature: 96.4 F Temperature Source: Tympanic - Pulse Right Brachial Pulse Rate: 77 Pulse Assessment Method: Automatic Cuff - Respirations Respiratory Rate: 14 Oxygen Delivery Method: Room Air - Blood Pressure Right Arm Blood Pressure: 140/73 Blood Pressure Mean: 95 Blood Pressure Source: Automatic Cuff Medical Screen Scoring - Assessment - Baby A Baseline FHR: 135 Heart Rate - NICHD Category: Category I (Normal) NST: Reactive Physician Notification - Physician Notified Physician Notified Date: 01/04/25 Physician Notified Time: 06:48 Physician: June Araiza Order Received: Yes - Notification Comment Comment: Labs drawn Maternal Triage Index - Maternal Triage Index Presenting for scheduled procedure w/no complaint: No - Stat/Priority 1 Stat Priority 1: No - Urgent/Priority 2 Urgent Priority 2: No - Prompt/Priority 3 Prompt Priority 3: No - Non-Urgent/Priority 4 Non-Urgent Priority 4: Yes Criteria Met for Priority 4: Nausea Disposition - Disposition OB Disposition: Discharge to home Discharge Date: 01/04/25 Discharge Time: 08:18 I agree with the RN Medical Screening Exam: Yes Physician's MSE Comment: I have neither seen nor examined the patient Case reviewed; plan agreed upon as documented in EMR&OBIX.: Yes Diagnosis: RELATED CONDITIONS, UNSPECIFIED, THIRD TRIMESTER
== END 2025-01-04 08:18 | disposition home or self-care (01) ==
LOC: FBPOP 06:10
PROVIDERS: ATTEND Obstetrics & Gynecology
DX: O26.893 Other specified pregnancy related conditions, third trimester (principal); O99.333 Smoking (tobacco) complicating pregnancy, third trimester; F12.90 Cannabis use, unspecified, uncomplicated; Z88.0 Allergy status to penicillin; Z91.040 Latex allergy status; Z3A.32 32 weeks gestation of pregnancy
CPT/HCPCS: 59025; 96361; 96374; 96375; 82570; 84156; 82565; 83615; 84450; 84460; 84520; 84550; 85025; 81001; 80306; G0463; J2405; J1308; 99214; 99215

== ENCOUNTER 2025-02-07 18:44 | Outpatient (CLI) | payer OTHER ==
[2025-02-07 20:39] LABS: Bacteria,Urine Rare /hpf; Bilirubin,Urine Negative (Negative); Blood,Urine Negative (Negative); Color,Urine Light Yellow; Glucose,Urine (UA) Negative (Negative); Hyaline Casts,Urine 1 /lpf (0-2); Ketones,Urine Negative (Negative); Leukocyte Esterase,Urine Moderate (Negative); Mucus,Urine Rare /hpf; Nitrite,Urine Negative (Negative); PH, Urine 7.0 (5.0-8.0); Protein,Urine Negative (Negative); RBC,Urine 2 /hpf (0-5); Specific Gravity,Urine 1.016 (1.001-1.035); Squamous Epithelial Cell,Urine 6 /hpf (0-4); Urobilinogen,Urine <2.0 mg/dL (<2.0); WBC,Urine 11 /hpf (0-5)
[2025-02-07] MEDS: LACTATED RINGERS 1,000 ML IV ONE ×2 (20:52→21:44)
[2025-02-07 22:35] VITALS: BP 128/68; PULSE 79; RESP 16; TEMP 96.5
--- NOTE | 2025-03-01 09:18 | P.MSEPDOC ---
Presenting Problems - Arrival Data Date of Arrival on Unit: 02/07/25 Time of Arrival on Unit: 18:44 Mode of Transport: Ambulatory - Complaint OB-Reason for Admission/Chief Complaint: Possible Onset of Labor, Acute Nausea/Vomiting Comment: Pt came in with c/o N/V, and lower abdominal pain. Medical History - Information : 1 Para: 0 Term: 0 : 0 Abortions: Spontaneous or Elective: 0 Number of Living Children: 0 - Gestational Age Gestational Age by MAURISIO (wks/days): 36 Weeks and 6 Days - History Complications: Hx. Substance Abuse Comment: THC Review of Systems - Review of Systems Constitutional: No problems Breast: No problems ENT: No problems Cardiovascular: No problems Respiratory: No problems Gastrointestinal: No problems Genitourinary: No problems Musculoskeletal: No problems Neurological: No problems Skin: No problems Vital Signs - Temperature Temperature: 96.5 F Temperature Source: Temporal Artery Scan - Pulse Pulse Oximetery Pulse Rate: 79 Pulse Assessment Method: Pulse Oximetry - Respirations Respiratory Rate: 16 Oxygen Delivery Method: Room Air O2 Sat by Pulse Oximetry: 98 - Blood Pressure Right Arm Blood Pressure: 128/68 Blood Pressure Mean: 88 Blood Pressure Source: Automatic Cuff Medical Screen Scoring - Cervical Exam Membranes: Intact - Uterine Contractions Frequency From (mins): 2 Frequency To (mins): 9 Duration From (seconds): 40 Duration To (seconds): 60 Resting: Soft to palpation - Assessment - Baby A Baseline FHR: 135 Heart Rate - NICHD Category: Category I (Normal) NST: Reactive Physician Notification - Physician Notified Physician Notified Date: 02/07/25 Physician Notified Time: 20:42 Physician: Ricardo Wing New Order Received: Yes (2 L of Lactated ringer and discharge home.) - Notification Comment Comment: notified of patient 36 6/7, with complaint of N/V and lower abdominal pain, stating she hasn't been able to keep fluids down all day. Cervical exam fingertip/thick on intial check and recheck an hour later, Urinalysis results shows no ketones present, pt ctx were 2-3 minutes apart initally, now about 5-8 minutes apart. Orders to give 2 bags of LR and to discharge home. Maternal Triage Index - Maternal Triage Index Presenting for scheduled procedure w/no complaint: No - Stat/Priority 1 Stat Priority 1: No - Urgent/Priority 2 Urgent Priority 2: No - Prompt/Priority 3 Prompt Priority 3: Yes Criteria Met for Priority 3: Pt came in with complaint of N/V and abdominal pain. Initially quinten 2-3 minutes apart. Disposition - Disposition OB Disposition: Discharge to home Discharge Date: 02/07/25 Discharge Time: 22:20 I agree with the RN Medical Screening Exam: Yes Physician's MSE Comment: I have neither seen nor examined the patient. Case reviewed; plan agreed upon as documented in EMR&OBIX.: Yes Diagnosis: RELATED CONDITIONS, UNSPECIFIED, THIRD TRIMESTER
== END 2025-02-07 22:20 | disposition home or self-care (01) ==
LOC: FBPOP 18:44
PROVIDERS: ATTEND Obstetrics & Gynecology
DX: O26.893 Other specified pregnancy related conditions, third trimester (principal); Z3A.36 36 weeks gestation of pregnancy; F12.90 Cannabis use, unspecified, uncomplicated; R10.30 Lower abdominal pain, unspecified; Z88.0 Allergy status to penicillin; Z88.1 Allergy status to other antibiotic agents; Z91.040 Latex allergy status
CPT/HCPCS: 59025; 81001; 96360; 96361; 96365; 99214

== ENCOUNTER 2025-02-11 10:38 | Outpatient (CLI) | payer OTHER ==
[2025-02-11 11:19] VITALS: BP 125/62; PULSE 82; RESP 18; TEMP 97.9
[2025-02-11 11:21] LABS: Bilirubin,Urine Negative (Negative); Blood,Urine Negative (Negative); Color,Urine Yellow; Glucose,Urine (UA) Negative (Negative); Ketones,Urine Negative (Negative); Leukocyte Esterase,Urine Moderate (Negative); Mucus,Urine Occasional /hpf; Nitrite,Urine Negative (Negative); PH, Urine 6.5 (5.0-8.0); Protein,Urine Trace (Negative); RBC,Urine 6 /hpf (0-5); Specific Gravity,Urine 1.025 (1.001-1.035); Squamous Epithelial Cell,Urine 23 /hpf (0-4); Urobilinogen,Urine <2.0 mg/dL (<2.0); WBC,Urine 15 /hpf (0-5)
[2025-02-11] MEDS: ONDANSETRON ODT 4 MG TAB PO STA (11:38)
--- NOTE | 2025-02-13 13:40 | P.MSEPDOC ---
Presenting Problems - Arrival Data Date of Arrival on Unit: 02/11/25 Time of Arrival on Unit: 10:34 Mode of Transport: Ambulatory - Complaint OB-Reason for Admission/Chief Complaint: Possible Onset of Labor, Acute Nausea/Vomiting Comment: increased contractions and nause, lightheaded Medical History - Information : 1 Para: 0 Term: 0 : 0 Abortions: Spontaneous or Elective: 0 Number of Living Children: 0 - Gestational Age Gestational Age by MAURISIO (wks/days): 37 Weeks and 3 Days Review of Systems - Review of Systems Constitutional: No problems Breast: No problems ENT: No problems Cardiovascular: No problems Respiratory: No problems Gastrointestinal: No problems Genitourinary: No problems Musculoskeletal: No problems Neurological: No problems Skin: No problems Vital Signs - Temperature Temperature: 97.9 F Temperature Source: Oral - Pulse Right Brachial Pulse Rate: 82 Pulse Assessment Method: Automatic Cuff - Respirations Respiratory Rate: 18 Oxygen Delivery Method: Room Air O2 Sat by Pulse Oximetry: 96 - Blood Pressure Right Arm Sitting Blood Pressure: 125/62 Blood Pressure Mean: 83 Blood Pressure Source: Automatic Cuff Medical Screen Scoring - Cervical Exam Dilation (cm): 1 Effacement (%): 0 Station: -3 Membranes: Intact - Uterine Contractions Frequency From (mins): 3 Frequency To (mins): 5 Duration From (seconds): 60 Duration To (seconds): 70 Intensity: Mild Resting: Soft to palpation - Assessment - Baby A Baseline FHR: 140 Heart Rate - NICHD Category: Category I (Normal) NST: Reactive Physician Notification - Physician Notified Physician Notified Date: 02/11/25 Physician Notified Time: 11:36 Physician: June Araiza New Order Received: Yes (subling zofran, discharge) - Notification Comment Comment: pt has scheduled appt tomorrow with Jose G Maternal Triage Index - Maternal Triage Index Presenting for scheduled procedure w/no complaint: No - Stat/Priority 1 Stat Priority 1: No - Urgent/Priority 2 Urgent Priority 2: No - Prompt/Priority 3 Prompt Priority 3: No - Non-Urgent/Priority 4 Non-Urgent Priority 4: Yes Criteria Met for Priority 4: 37.3, contractions, light headed Disposition - Disposition OB Disposition: Triage, Discharge to home, Written follow up instructions reviewed Discharge Date: 02/11/25 Discharge Time: 11:45 I agree with the RN Medical Screening Exam: Yes Physician's MSE Comment: I have neither seen nor examined the patient Case reviewed; plan agreed upon as documented in EMR&OBIX.: Yes Diagnosis: LATE VOMITING OF
== END 2025-02-11 11:45 | disposition home or self-care (01) ==
LOC: FBPOP 10:38
PROVIDERS: ATTEND Obstetrics & Gynecology
DX: O21.2 Late vomiting of pregnancy (principal); Z3A.37 37 weeks gestation of pregnancy; Z88.0 Allergy status to penicillin; Z91.040 Latex allergy status
CPT/HCPCS: 59025; 81001; 87077; 87086; 87186; 99213

== ENCOUNTER 2025-02-21 12:58 | Outpatient (CLI) | payer OTHER ==
[2025-02-21 15:41] VITALS: BP 119/68; PULSE 92; RESP 16; TEMP 97.9
--- NOTE | 2025-03-27 09:52 | P.MSEPDOC ---
Presenting Problems - Arrival Data Date of Arrival on Unit: 02/21/25 Time of Arrival on Unit: 12:58 Mode of Transport: Ambulatory - Complaint OB-Reason for Admission/Chief Complaint: Possible Onset of Labor Medical History - Information : 1 Para: 0 Term: 0 : 0 Abortions: Spontaneous or Elective: 0 Number of Living Children: 0 - Gestational Age Gestational Age by MAURISIO (wks/days): 38 Weeks and 6 Days Review of Systems - Review of Systems Constitutional: No problems Breast: No problems ENT: No problems Cardiovascular: No problems Respiratory: No problems Gastrointestinal: No problems Genitourinary: No problems Musculoskeletal: No problems Neurological: No problems Skin: No problems Vital Signs - Temperature Temperature: 97.9 F Temperature Source: Temporal Artery Scan - Pulse Pulse Oximetery Pulse Rate: 92 Pulse Assessment Method: Pulse Oximetry - Respirations Respiratory Rate: 16 Oxygen Delivery Method: Room Air O2 Sat by Pulse Oximetry: 98 - Blood Pressure Right Arm Blood Pressure: 119/68 Blood Pressure Mean: 85 Blood Pressure Source: Automatic Cuff Medical Screen Scoring - Cervical Exam Dilation (cm): 1 Effacement (%): 50 Station: -3 Membranes: Intact - Uterine Contractions Intensity: Mild Resting: Soft to palpation - Assessment - Baby A Baseline FHR: 140 Heart Rate - NICHD Category: Category I (Normal) NST: Reactive Physician Notification - Physician Notified Physician Notified Date: 02/21/25 Physician Notified Time: 13:20 Physician: Seema Talamantes New Order Received: Yes - Notification Comment Comment: At 1320, reported pt presents to triage with c/o contx that are "constant" and vaginal pressure since this morning. Reported vitals WNL, claudia 1 FHT, irregular contractions, cervical exam of 1/thick/high. Order received to recheck pt's cervix in one hour, if unchanged, pt can be discharged home. Maternal Triage Index - Maternal Triage Index Presenting for scheduled procedure w/no complaint: No - Stat/Priority 1 Stat Priority 1: No - Urgent/Priority 2 Urgent Priority 2: No - Prompt/Priority 3 Prompt Priority 3: No - Non-Urgent/Priority 4 Non-Urgent Priority 4: Yes Criteria Met for Priority 4: Common discomforts of Disposition - Disposition OB Disposition: Discharge to home, Written follow up instructions reviewed Discharge Date: 02/21/25 Discharge Time: 14:28 I agree with the RN Medical Screening Exam: Yes Case reviewed; plan agreed upon as documented in EMR&OBIX.: Yes Diagnosis: FALSE LABOR AT OR AFTER 37 COMPLETED WEEKS OF GESTATION
== END 2025-02-21 14:28 | disposition home or self-care (01) ==
LOC: FBPOP 12:58
PROVIDERS: ATTEND Obstetrics & Gynecology Obstetrics
DX: O47.1 False labor at or after 37 completed weeks of gestation (principal); Z3A.38 38 weeks gestation of pregnancy; Z88.0 Allergy status to penicillin; Z88.1 Allergy status to other antibiotic agents; Z91.040 Latex allergy status; F12.90 Cannabis use, unspecified, uncomplicated
CPT/HCPCS: 59025; 99213

== ENCOUNTER 2025-02-28 11:51 | Outpatient (CLI) | payer OTHER ==
[2025-02-28 13:52] VITALS: BP 131/65; PULSE 88; RESP 16; TEMP 97.2
--- NOTE | 2025-03-01 09:39 | P.MSEPDOC ---
Presenting Problems - Arrival Data Date of Arrival on Unit: 02/28/25 Time of Arrival on Unit: 11:52 Mode of Transport: Ambulatory - Complaint OB-Reason for Admission/Chief Complaint: Possible Onset of Labor Comment: pt arrived c/o contractions that shes unable to time and cramping and possible labor pt denies any ROM and any problems with Medical History - Information : 1 Para: 0 Term: 0 : 0 Abortions: Spontaneous or Elective: 0 Number of Living Children: 0 - Gestational Age Gestational Age by MAURISIO (wks/days): 39 Weeks and 6 Days - History Complications: Smoker Comment: pt has history of marjuanai use Review of Systems - Review of Systems Constitutional: No problems Breast: No problems ENT: No problems Cardiovascular: No problems Respiratory: No problems Gastrointestinal: No problems Genitourinary: No problems Musculoskeletal: No problems Neurological: No problems Skin: No problems Vital Signs - Temperature Temperature: 97.2 F Temperature Source: Oral - Pulse Right Brachial Pulse Rate: 88 Pulse Assessment Method: Automatic Cuff - Respirations Respiratory Rate: 16 Oxygen Delivery Method: Room Air O2 Sat by Pulse Oximetry: 96 - Blood Pressure Right Arm Blood Pressure: 131/65 Blood Pressure Mean: 87 Blood Pressure Source: Automatic Cuff Medical Screen Scoring - Cervical Exam Dilation (cm): 1 Effacement (%): 50 Station: -3 Membranes: Intact - Uterine Contractions Frequency From (mins): 7 Frequency To (mins): 8 Duration From (seconds): 40 Duration To (seconds): 50 Intensity: Mild Resting: Soft to palpation - Assessment - Baby A Baseline FHR: 130 Heart Rate - NICHD Category: Category I (Normal) NST: Reactive Physician Notification - Physician Notified Physician Notified Date: 02/28/25 Physician Notified Time: 12:25 New Order Received: Yes - Notification Comment Comment: check cervix in 1 hr and reactive nst pt may go home Maternal Triage Index - Non-Urgent/Priority 4 Non-Urgent Priority 4: Yes Criteria Met for Priority 4: pt 39 6/7 weeeks gestation arrived c/o questionable laor unable to time contractions denies rom and denies any bleeding cervix checked and 1 cm posterior and thick -3 station with no bleeding or fluid noted. pt has reactive NST and cervix rechecked after 1 hour with no change noted contractions contractions irregulr with some 7-8 minutes apart Disposition - Disposition OB Disposition: Discharge to home Discharge Date: 02/28/25 Discharge Time: 13:35 I agree with the RN Medical Screening Exam: Yes Physician's MSE Comment: I have neither seen nor examined the patient. Case reviewed; plan agreed upon as documented in EMR&OBIX.: Yes Diagnosis: RELATED CONDITIONS, UNSPECIFIED, THIRD TRIMESTER
== END 2025-02-28 13:35 | disposition home or self-care (01) ==
LOC: FBPOP 11:51
PROVIDERS: ATTEND Obstetrics & Gynecology
DX: O26.893 Other specified pregnancy related conditions, third trimester (principal); O99.333 Smoking (tobacco) complicating pregnancy, third trimester; F12.90 Cannabis use, unspecified, uncomplicated; F17.200 Nicotine dependence, unspecified, uncomplicated; Z88.0 Allergy status to penicillin; Z91.040 Latex allergy status; Z3A.39 39 weeks gestation of pregnancy
CPT/HCPCS: 59025; 99213